=== PATIENT | male | born 1985 | race Hispanic/Latino ===

== ENCOUNTER 2017-04-02 20:29 | Emergency (ER) | payer BC | END 2017-04-02 21:12 | disposition home or self-care (01) | LOC: ERS 20:29 | DX: H60.92 Unspecified otitis externa, left ear (principal); Z79.899 Other long term (current) drug therapy | CPT/HCPCS: 99282 ==

== ENCOUNTER 2017-05-30 00:21 | Inpatient (IN) | payer BC ==
[2017-05-30 01:04] LABS: #Lymphocytes 0.8 thou/uL (1.20-3.40); #Monocytes 1.1 thou/uL (0.11-0.59); #Neutrophils 8.6 thou/uL (1.40-6.50); %Basophils 0.3 % (0.0-1.0); %Eosinophils 0.4 % (0.0-10.0); %Lymphocytes 7.3 % (21.0-51.0); Hemoglobin 15.6 g/dL (14.0-18.0); Mean Corpuscular HGB CONC 33.9 g/dL (32.0-36.0); Mean Corpuscular Hemoglobin 30.2 pg (27.0-31.0); Mean Corpuscular Volume 89.1 fl (80.0-94.0); Mean Platelet Volume 6.4 fL (7.4-10.4); Platelet Count 178 thou/uL (130-400); RBC Distribution Width 12.6 % (11.5-14.5); Red Blood Cell (RBC) Count 5.16 mill/uL (4.70-6.10); White Blood Cell (WBC) Count 10.5 thou/uL (4.8-10.8)
[2017-05-30 01:23] LABS: ALT (SGPT) 46 U/L (8-55); AST (SGOT) 28 U/L (5-34); Albumin 4.1 g/dL (3.5-5.0); Alkaline Phosphatase 90 U/L (40-150); Anion Gap 14 mmol/L (10-20); BUN (Urea Nitrogen) 9 mg/dL (8.9-20.6); Bilirubin, Total 1.5 mg/dL (0.2-1.2); Calc. Creatinine Clearance 0 mL/min (70-130); Calcium 9.6 mg/dL (7.8-10.44); Carbon Dioxide 21 mmol/L (22-29); Chloride 101 mmol/L (98-107); Estimated GFR-MDRD 82; Globulin 4.2 g/dL (2.4-3.5); Glucose 134 mg/dL (70-105); Potassium 4.4 mmol/L (3.5-5.1); Protein, Total 8.3 g/dL (6.0-8.3); Sodium 132 mmol/L (136-145)
[2017-05-30] MEDS ORDERED: Azithromycin 500 MG in Sodium Chloride 0.9% 250 ML 250 ML IVPB SCH (03:15)
[2017-05-30] MEDS ORDERED: Piperacillin/Tazobactam 4.5 GM in Sodium Chloride 0.9% 100 ML IVPB SCH (03:15)
[2017-05-30] MEDS ORDERED: Ondansetron ODT 4 MG TAB SL PRN (05:42)
[2017-05-30] MEDS ORDERED: Acetaminophen 325 MG TAB PO PRN (05:42)
[2017-05-30] MEDS ORDERED: Ondansetron HCl/PF 4 MG/2 ML Vial IVP PRN (05:42)
[2017-05-30] MEDS: Sodium Chloride 0.9% 1,000 ML IV SCH ×2 (06:00→14:01)
[2017-05-30 06:48] VITALS: BMI 40.6
--- NOTE | 2017-05-30 09:00 | RAD ---
UPRIGHT PORTABLE CHEST 1 VIEW: Date: 05/30/17 HISTORY: 31-year-old male with dyspnea, shortness of breath, cough, and chest pain. FINDINGS: There is very poor inspiration. There are some alveolar parenchymal changes in the right lower lobe a nd possibly the right middle lobe with some right costophrenic angle blunting. There are less promine nt parenchymal changes in the left lower lung zone, mostly in the left lower lobe, with some left cos tophrenic angle blunting. IMPRESSION: Findings are certainly worrisome for bilateral pneumonia, worse in the right base, with some small pl eural effusions. Poor inspiration. The upper lung zones demonstrate mild vascular congestion. POS: [facility]
--- NOTE | 2017-05-30 09:23 | CT ---
PRELIMINARY REPORT/[facility]/EMERGENCY AFTER HOURS PROCEDURE: EXAM: CT Angiography Chest With Intravenous Contrast CLINICAL HISTORY: 31 years old, male; Pain and signs and symptoms; Dyspnea and shortness of breath; Chest pain; Patient HX: 31m presents for shortness of breath. Patient states he woke up with cough, shortness o f breath and chest pain. Patient reports HX of dvt, for which he was placed on eliquis and is complia nt. Patient reports fever and chills. Increased SOB today. Patient hypoxic on arrival with sats 89% o n ra. TECHNIQUE: Axial computed tomographic angiography images of the chest with intravenous contrast using pulmonary embolism protocol. CONTRAST: 63 mL of ISO 370 administered intravenously. COMPARISON: No relevant prior studies available. FINDINGS: Pulmonary vessels: Nonopacification of the right middle lobe pulmonary artery and veins. Otherwise there is no evidence of pulmonary embolism. Aorta: No acute findings. No thoracic aortic aneurysm. Lungs: Right middle lobe consolidation with air bronchograms likely representing pneumonia. Right low er lobe atelectasis/consolidation. Left lower lobe and lingular atelectatic/consolidative opacities. Pleural space: Trace pleural fluid. No pneumothorax. Heart: No acute findings. No cardiomegaly. No significant pericardial effusion. Bones/joints: No acute fracture. No dislocation. Soft tissues: No acute findings. Lymph nodes: No lymphadenopathy. IMPRESSION: No evidence of pulmonary embolism. Right middle lobe consolidation and nonopacification may represent necrotizing pneumonia. Right lower lobe atelectasis/consolidation and left lower lobe and lingular a telectatic/consolidative opacities are also likely related to pneumonia. THIS REPORT CONTAINS FINDINGS THAT MAY BE CRITICAL TO PATIENT CARE. The findings were verbally commun icated via telephone conference with BRANDEN JOHNS at 2:38 AM BIOCHEMICAL ENGINEER on 05/30/2017. The findings were a cknowledged and understood. Thank you for allowing us to participate in the care of your patient. Dictated and Authenticated by: Chadwick Pena MD 05/30/2017 2:58 AM Central Time ([place] & [place]) FINAL REPORT EMERGENCY AFTER HOURS CT ANGIOGRAM CHEST INCLUDING 3D RENDERING: DATE: 05/30/17 TIME: 0150 hours IMPRESSION: No significant CT evidence for acute pulmonary embolism. Right middle lobe and right lower lobe pneum onia with some right pleural effusion. Minimal left lower lobe and lingular parenchymal changes which could also represent some minimal pneumonia. Treatment and short-term follow-up suggested. Report in agreement with preliminary report given on-call by Zoraida. POS: [facility]
[2017-05-30] MEDS ORDERED: Albuterol Sulfate 1.25 MG/3 ML NEB NEB PRN ×2 (10:36→10:39)
[2017-05-30] MEDS ORDERED: HYDROcodone/Acetaminophen 5/325 mg Tablet PO PRN (10:39)
--- NOTE | 2017-05-30 11:35 | CON ---
DATE OF CONSULTATION: 05/30/2017 This is a 31-year-old morbidly obese gentleman who is 120 kilograms. He presented wit h right-sided chest pain and shortness of breath without any fever or chills to my surprise. 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 He was given some more Levaquin yesterday. His previous history is consistent with deep venous throm bosis several years. He is still apparently taking Eliquis. His primary care physician is Dr. Aman pedrzoa. He was hypoxic on arrival. He was placed on noninvasive ventilation. He denies any substance abuse. He denies any tobacco abuse. He drinks occasionally. PAST MEDICAL HISTORY: Pertinent mainly for his deep venous thrombosis. PAST SURGICAL HISTORY: Apparently none. REVIEW OF SYSTEMS: Otherwise 10 point negative. PHYSICAL EXAMINATION: VITAL SIGNS: Blood pressure is 120/79, sats 90%, respirations 30, temperature 98. CHEST: Chest revealed bilateral rhonchi and crackles. CARDIAC: Normal S1 and S2. No gallops. LABORATORY: His lab shows white count 10,000, H&H 15 and 46, platelet count is normal, 82 segs. Sod ium 132. Electrolytes are normal. X-ray shows an elevated right hemidiaphragm, right pleural effusi on. CAT scan shows the above findings along with a very small right-sided pleural effusion. IMPRESSION: 1. Community acquired pneumonia, bilateral. 2. Small right pleural effusion. PLAN: He has pneumonia, therefore steroids have been issued. Continue antibiotics, doxycycline. Continue Eliquis. I will follow. This is 70 minutes of my time, 50% of that time I spent taking care of the patient.
--- NOTE | 2017-05-30 11:38 | HP ---
PRIMARY CARE PHYSICIAN: Dr. Will Boone. PRIMARY CARDIOLOGY: Dr. Al. HISTORY OF PRESENT ILLNESS: This is a 31-year-old gentleman with a history of hypercoagulable state with resulting chronic DVT, who presented to the emergency department last night with complaints of s udden onset of pain in chest and shortness of breath. He denied any fevers or chills at that time. Denies fever. He has become more short of breath with chills. He states that he has pain whenever h e moves or cough at this time. In the emergency department, he was found to have bilateral infiltrat es consistent with bilateral pneumonia. He was quite hypoxic on admission. He had some improvement of his symptoms, as well as his shortness of breath with BiPAP. He has been able to wean off the BiP AP but continues to be short of breath and hypoxic when he moves in bed and continues to have chest p ain. He did have a CT angiogram of his chest in the ER, which was negative for pulmonary embolism, b ut did have bilateral infiltrates in his lungs. He started on antibiotics last night in the ED and i s now being admitted for further evaluation and treatment of his bilateral pneumonia. PAST MEDICAL HISTORY: Chronic left-sided DVT since 2015, he has been on Eliquis, he has been followe d by Dr. Al and was seen by Dr. Moreno, who diagnosed him with a hypercoagulable state and t old that he is going to be chronically on anticoagulation. PAST SURGICAL HISTORY: Tonsillectomy. SOCIAL HISTORY: No smoking. Occasional social alcohol use. He is with 4 children. 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 No ill contacts. FAMILY HISTORY: Mother with diabetes, heart disease with recent [place]. Father has unknown medical hist ory. MEDICATIONS: Only Eliquis 2.5 mg b.i.d. REVIEW OF SYSTEMS: As per the history of present illness. GENERAL: He denies any recent fevers, chills or recent illness. HEENT: He admits to headache. No visual or hearing changes. CARDIAC: Positive for chest pain, no palpitations, no history of heart disease. PULMONARY: Positive chest pain. Positive shortness of breath. No hemoptysis. No cough. GASTROINTESTINAL: No nausea, vomiting, abdominal pain, melena or hematochezia. GENITOURINARY: Denies dysuria or hematuria. NEUROLOGIC: Positive weakness. He has difficulty moving around due to his pain in his chest wheneve r he moves. NEUROLOGIC: No history of seizures or syncope. PHYSICAL EXAMINATION: VITAL SIGNS: Temperature 98.6, pulse of 85-95, respirations 22-30, blood pressure 129/79, pulse ox i s 98% to 99% on room air, but drops down to 83% to 85% whenever he moves. GENERAL: He is awake and a lert. He is uncomfortable in bed with no acute distress. Mild conversational dyspnea. NECK: Supple. No JVD, adenopathy or bruits. HEART: Regular rate and rhythm. LUNGS: With scattered rhonchi throughout, occasional wheezes anteriorly. He is unable to sit up for very long to listen posteriorly. ABDOMEN: Obese, soft, nontender, nondistended. No hepatosplenomegaly. EXTREMITIES: No clubbing, cyanosis or edema. No calf tenderness. LABORATORY DATA: White blood cell count 10.5 thousand, hemoglobin and hematocrit 15.6 and 46, platel ets 178. D-dimer was mildly elevated at 0.74. Sodium 132, potassium 4.2, chloride 101, CO2 21, BUN and creatinine 9 and 1.05. Serum glucose 134. Urinalysis positive for protein. Chest x-ray was rev iewed which revealed right middle and lower lobe infiltrates with pleural effusions and left upper lo be infiltrate as well. CT angiogram was negative. ASSESSMENT AND PLAN: This is a 31-year-old gentleman with a hypercoagulable state, now with acute on set of bilateral pneumonia. We will continue antibiotics with IV Levaquin. We will start neb treatm ents and oxygen therapy as well. Follow up chest x-rays. Follow up labs including CBC. I will chec k his sputum culture as well and consult Pulmonary for evaluation due to the sudden onset of his symp toms and otherwise healthy individual. We will rule out any kind of immunocompromised state. I will check HIV, hepatitis, and PPD placement as well.
[2017-05-30 12:21] LABS: HBSAg Index 0.15 S/CO (0-0.99); Hep B Surf Ag Non-Reactive S/CO (NonReactive)
[2017-05-30 12:22] LABS: Hep C IgG Ab Non-Reactive (NonReactive); Hep C Index 0.12 S/CO (0-0.79)
[2017-05-30 12:24] LABS: HIV (1/2) Antibody/Antigen Non-Reactive (NonReactive); HIV 1/2 INDEX 0.14 S/CO (<1.00)
[2017-05-30] MEDS ORDERED: ISOVUE-370 76%-LOCM 1 ML ONE (12:24)
[2017-05-30 12:35] LABS: Hep A IgM AB Non-Reactive (NonReactive); Hep A IgM S/CO 0.14 S/CO (0-0.79)
[2017-05-30 13:48] LABS: HBCM Index 1.02 S/CO (0-0.79)
[2017-05-30 13:57] LABS: Hepatitis B Core IGM Abs Equivocal (NonReactive)
[2017-05-30] MEDS: Apixaban 5 MG TAB PO SCH (21:31)
[2017-05-30] MEDS: Doxycycline 100 MG CAP PO SCH (21:32)
[2017-05-31 05:04] LABS: #Lymphocytes 0.5 thou/uL (1.20-3.40); #Monocytes 0.5 thou/uL (0.11-0.59); #Neutrophils 11.2 thou/uL (1.40-6.50); %Eosinophils 0.1 % (0.0-10.0); %Lymphocytes 3.8 % (21.0-51.0); %Monocytes 4.1 % (0.0-10.0); Hemoglobin 14.4 g/dL (14.0-18.0); Mean Corpuscular HGB CONC 34.2 g/dL (32.0-36.0); Mean Corpuscular Hemoglobin 30.2 pg (27.0-31.0); Mean Corpuscular Volume 88.3 fl (80.0-94.0); Mean Platelet Volume 6.4 fL (7.4-10.4); Platelet Count 177 thou/uL (130-400); RBC Distribution Width 12.3 % (11.5-14.5); Red Blood Cell (RBC) Count 4.77 mill/uL (4.70-6.10); White Blood Cell (WBC) Count 12.2 thou/uL (4.8-10.8)
[2017-05-31 05:20] LABS: ALT (SGPT) 86 U/L (8-55); AST (SGOT) 63 U/L (5-34); Albumin 3.7 g/dL (3.5-5.0); Alkaline Phosphatase 89 U/L (40-150); Anion Gap 11 mmol/L (10-20); BUN (Urea Nitrogen) 8 mg/dL (8.9-20.6); Bilirubin, Total 1.1 mg/dL (0.2-1.2); Calc. Creatinine Clearance 201 mL/min (70-130); Calcium 9.6 mg/dL (7.8-10.44); Carbon Dioxide 27 mmol/L (22-29); Chloride 101 mmol/L (98-107); Estimated GFR-MDRD Greater than 90; Globulin 4.2 g/dL (2.4-3.5); Glucose 162 mg/dL (70-105); Potassium 4.2 mmol/L (3.5-5.1); Protein, Total 7.9 g/dL (6.0-8.3); Sodium 135 mmol/L (136-145)
[2017-05-31] MEDS: Apixaban 5 MG TAB PO SCH ×2 (09:34→19:46)
[2017-05-31] MEDS: Doxycycline 100 MG CAP PO SCH ×2 (09:34→19:47)
--- NOTE | 2017-05-31 10:33 | RAD ---
CHEST 1 VIEW: Date: 05/31/17 HISTORY: 31-year-old male with follow-up bilateral pneumonia. FINDINGS: Poor inspiration with some fairly extensive alveolar opacity changes in the right mid and lower lung zone, and blunting of the right costophrenic angle, with some less marked pleural and parenchymal opa city changes in the left base. IMPRESSION: Stable bilateral pleural and parenchymal opacity changes, worse in the right base. Continued follow-u p for complete clearing or stability. POS: [facility]
--- NOTE | 2017-05-31 11:20 | PRG ---
DATE OF SERVICE: 05/31/2017 PRIMARY CARE PHYSICIAN: Dr. Will Boone. SUBJECTIVE: The patient is feeling significantly better. He denies chest pain. He still has some c ough with production. No fevers or chills. No nausea and vomiting. He is moving around in the room better. He did get short of breath when taking a shower. OBJECTIVE: VITAL SIGNS: Temperature 98.2, T-max of 99.2, pulse of 95-120, respirations 16-20, blood pressure 13 9/83, pulse ox is 91% to 97% on 3 liters. GENERAL: He is awake and alert, in no acute distress, sitting up and comfortable in bed. NECK: Supple. HEART: Tachycardic. LUNGS: With decreased breath sounds bilaterally, worse on the right side. ABDOMEN: Obese, soft. EXTREMITIES: With no edema. LABORATORY DATA: White blood cell count 12.2 thousand, hemoglobin and hematocrit 14.4 and 42.2, plat elets 177, left shift with 92% neutrophils. Sodium 135, potassium 4.2, chloride 101, CO2 27, up from 21, BUN and creatinine 8 and 0.93 with a GFR of greater than 90. Serum glucose of 162, calcium 9.6, AST and ALT are elevated at 63 and 86, albumin of 3.7. HIV was nonreactive, hepatitis A antibody wa s negative, hepatitis B antigen was negative. Hepatitis B core antibody was equivocal, hepatitis C a ntibody was nonreactive. Chest x-ray is pending, but appears about the same as yesterday. HOSPITAL COURSE: This is a 31-year-old gentleman with a history of chronic DVT, now with multilobar pneumonia, improved on Levaquin and doxycycline. Appreciate Dr. Moreno's input. We will continue to f avtar. 1. Deep venous thrombosis. We will continue Eliquis. 2. We will transfer to medical floor since he is not as hypoxic and less pain. We will continue to monitor. 3. Positive hepatitis B antibody. I will continue to monitor and recheck in 1-2 months. 4. Elevated liver function tests. I will stop acetaminophen and continue to monitor.
--- NOTE | 2017-05-31 12:50 | PRG ---
DATE OF SERVICE: 05/31/2017 SUBJECTIVE: This morning, he is better, less pain and less shortness of breath. OBJECTIVE: VITAL SIGNS: Sats are 90% on 2 liters, pulse 102, temperature is 98 and blood pressure is 145/89. CHEST: Decreased breath sounds in right lung. Left lung, unremarkable. CARDIAC: Normal S1 and S2. No gallops. ABDOMEN: Soft. No masses. LABORATORY DATA: White count 12,000, hemoglobin and hematocrit 14 and 42, platelet count is normal. Electrolytes are normal. IMAGING DATA: X-ray shows a right-sided infiltrate. There may be a small pleural effusion. IMPRESSION: Right-sided pneumonia, pleural effusion. PLAN: He can be transferred out of the ICU. Continue steroids, doxycycline and Levaquin. We will spencer nova.
[2017-06-01 05:00] LABS: #Lymphocytes 0.6 thou/uL (1.20-3.40); #Monocytes 0.7 thou/uL (0.11-0.59); #Neutrophils 12.7 thou/uL (1.40-6.50); %Basophils 0.1 % (0.0-1.0); %Eosinophils 0.2 % (0.0-10.0); %Lymphocytes 4.1 % (21.0-51.0); %Monocytes 5.3 % (0.0-10.0); %Neutrophils 90.3 % (42.0-75.0); Hemoglobin 14.1 g/dL (14.0-18.0); Mean Corpuscular Hemoglobin 28.7 pg (27.0-31.0); Mean Corpuscular Volume 89.5 fl (80.0-94.0); Mean Platelet Volume 6.5 fL (7.4-10.4); Platelet Count 210 thou/uL (130-400); RBC Distribution Width 12.4 % (11.5-14.5); Red Blood Cell (RBC) Count 4.91 mill/uL (4.70-6.10); White Blood Cell (WBC) Count 14.1 thou/uL (4.8-10.8)
[2017-06-01 05:24] LABS: ALT (SGPT) 269 U/L (8-55); AST (SGOT) 193 U/L (5-34); Albumin 3.4 g/dL (3.5-5.0); Alkaline Phosphatase 105 U/L (40-150); Anion Gap 14 mmol/L (10-20); BUN (Urea Nitrogen) 14 mg/dL (8.9-20.6); Bilirubin, Total 0.8 mg/dL (0.2-1.2); Calc. Creatinine Clearance 191 mL/min (70-130); Calcium 9.6 mg/dL (7.8-10.44); Carbon Dioxide 23 mmol/L (22-29); Chloride 101 mmol/L (98-107); Estimated GFR-MDRD Greater than 90; Globulin 4.6 g/dL (2.4-3.5); Glucose 161 mg/dL (70-105); Potassium 4.9 mmol/L (3.5-5.1); Sodium 133 mmol/L (136-145)
--- NOTE | 2017-06-01 07:42 | RAD ---
CHEST 1 VIEW: HISTORY: Pneumonia. Followup. COMPARISON: 05/31/17. FINDINGS: The cardiac silhouette is magnified and upper limits of normal. Infiltrate at the right base has imp roved slightly since the previous exam. Patchy left basilar infiltrate is stable. Pulmonary vascula ture is slightly more engorged. Mediastinum is midline. No evidence of pneumothorax. IMPRESSION: 1. Slight interval improvement in aeration of the right lung base. 2. Progression of pulmonary vascular congestion. POS: [facility]
[2017-06-01] MEDS: Doxycycline 100 MG CAP PO SCH ×2 (08:34→20:24)
[2017-06-01] MEDS: Apixaban 5 MG TAB PO SCH ×2 (08:34→20:24)
--- NOTE | 2017-06-01 08:37 | PRG ---
DATE OF SERVICE: 06/01/2017 SUBJECTIVE: The patient is feeling better today. He states his shortness of breath has improved. H e is still on 2 liters of oxygen. OBJECTIVE: VITAL SIGNS: Temperature 97.9, pulse 85, respiration 20, pulse ox 93 on 2 liter, blood pressure 130/ 88. HEART: Regular rate and rhythm. LUNGS: Clear. ABDOMEN: Soft. LABORATORY: White count from 12-14.1, H&H 14 and 44. Sodium 133, potassium 4.9, blood sugar 162 and 161. Liver function tests are elevated at 63 to 193, AST, ALT is 86 and 269. Hepatitis B core IgM antibody is equivocal. ASSESSMENT: 1. Bilateral pneumonia on Levaquin and doxycycline. 2. Chronic deep venous thrombosis on Eliquis. 3. Questionable hepatitis B IgM positivity. 4. Elevated liver function tests. PLAN: 1. Continue IV antibiotics. 2. Repeat CBC and comprehensive in the a.m. 3. Abdominal ultrasound. 4. Will need repeat hepatitis B studies.
--- NOTE | 2017-06-01 10:26 | ULT ---
RIGHT UPPER QUADRANT ABDOMINAL ULTRASOUND: HISTORY: Elevated LFTs. TECHNIQUE: Multiplanar, rubin scale, and color Doppler images were obtained in a right upper quadrant abdominal u ltrasound. FINDINGS: The liver is increased in echogenicity without focal lesions or intrahepatic ductal dilatation. The gallbladder is normal without stones, sludge, gallbladder wall thickening, or pericholecystic fluid. The common bile duct is normal measuring 5 mm. The visualized portions of the pancreas are unremarkable. The right kidney is normal in echogenicity without hydronephrosis or calculus and measures 10.7 cm in length. IMPRESSION: Fatty liver. POS: [facility]
--- NOTE | 2017-06-01 16:49 | PRG ---
DATE OF SERVICE: 06/01/2017 This morning he is much better. X-ray looks improved. Infiltrates look better. PHYSICAL EXAMINATION: VITAL SIGNS: Sats 93% on 2 liters, temperature 97, blood pressure 130/80. CHEST: Bilateral crackles, without any wheezing. CARDIAC: Normal S1-S2. No gallops. ABDOMEN: Soft. No masses. LABORATORY DATA: White count 14,000. Electrolytes are normal. Elevated liver function. IMPRESSION: 1. Bilateral bronchopneumonia. 2. Abnormal liver function. PLAN: All cultures are so far negative. I will switch him over to oral medications tomorrow. He can be discharged home hopefully if he is stable in the next 24-48 hours. I will follow. ZABRINA
[2017-06-02 05:04] LABS: #Eosinphils 0.1 thou/uL (0.0-0.7); #Lymphocytes 1.7 thou/uL (1.20-3.40); #Monocytes 0.8 thou/uL (0.11-0.59); %Basophils 0.3 % (0.0-1.0); %Eosinophils 0.8 % (0.0-10.0); %Lymphocytes 19.8 % (21.0-51.0); %Monocytes 9.3 % (0.0-10.0); %Neutrophils 69.8 % (42.0-75.0); Hemoglobin 14.4 g/dL (14.0-18.0); Mean Corpuscular HGB CONC 34.7 g/dL (32.0-36.0); Mean Corpuscular Hemoglobin 31.2 pg (27.0-31.0); Mean Platelet Volume 6.3 fL (7.4-10.4); Platelet Count 169 thou/uL (130-400); RBC Distribution Width 12.4 % (11.5-14.5); Red Blood Cell (RBC) Count 4.62 mill/uL (4.70-6.10); White Blood Cell (WBC) Count 8.5 thou/uL (4.8-10.8)
[2017-06-02 05:26] LABS: ALT (SGPT) 301 U/L (8-55); AST (SGOT) 162 U/L (5-34); Albumin 3.4 g/dL (3.5-5.0); Alkaline Phosphatase 99 U/L (40-150); Anion Gap 12 mmol/L (10-20); BUN (Urea Nitrogen) 21 mg/dL (8.9-20.6); Bilirubin, Total 0.5 mg/dL (0.2-1.2); Calc. Creatinine Clearance 160 mL/min (70-130); Calcium 8.9 mg/dL (7.8-10.44); Carbon Dioxide 29 mmol/L (22-29); Chloride 100 mmol/L (98-107); Estimated GFR-MDRD 76; Globulin 3.7 g/dL (2.4-3.5); Glucose 109 mg/dL (70-105); Potassium 4.3 mmol/L (3.5-5.1); Protein, Total 7.1 g/dL (6.0-8.3); Sodium 137 mmol/L (136-145)
[2017-06-02] MEDS ORDERED: predniSONE 20 MG TAB PO SCH (08:00)
[2017-06-02] MEDS: Apixaban 5 MG TAB PO SCH (08:02)
[2017-06-02] MEDS: Doxycycline 100 MG CAP PO SCH (08:03)
--- NOTE | 2017-06-02 08:35 | RAD ---
CHEST ONE VIEW: History: Pneumonia. Follow up. Comparison: 06-01-17 FINDINGS: Cardiac silhouette is magnified and enlarged. Pulmonary vasculature is upper limits of normal. Patchy bilateral infiltrates, right greater than left, are similar in appearance to the prior exam. No evid ence of pneumothorax. IMPRESSION: Stable radiographic appearance of bibasilar infiltrates. POS: [facility]
[2017-06-02 11:34] VITALS: BP 125/84; TEMP 98.4
--- NOTE | 2017-06-02 12:43 | PRG ---
DATE OF SERVICE: 06/02/2017 OBJECTIVE: VITAL SIGNS: Blood pressure 127/85, saturations are 97 on 2 liters, respiration 16, temperature 98. CHEST: Decreased breath sounds in the right lung. Left lung is unremarkable. CARDIAC: Normal S1, S2. No gallops. ABDOMEN: Soft. No masses. LABORATORY DATA: White count 8000, no left shift. Electrolytes are normal. His liver function is b maribel. AST and ALT are 161 and 301. IMAGING: He had ultrasound of the abdomen done yesterday. It basically shows gallbladder was unrema rkable. IMPRESSION: 1. Right-sided pneumonia, small pleural effusion, better. 2. Abnormal liver function tests. PLAN: From a pulmonary standpoint of view, he can be discharged home on present antibiotic, tapering dose of prednisone and antibiotics for another 5 days. Follow up in the office in 2 weeks for chest x-ray.
--- NOTE | 2017-06-02 15:53 | DIS ---
DATE OF ADMISSION: 05/30/2017 DATE OF DISCHARGE: 06/02/2017 DISCHARGE DIAGNOSES: 1. Bilateral bronchopneumonia. 2. Chronic deep venous thrombosis, on Eliquis. 3. Questionable hepatitis B IgM positivity. 4. Elevated liver function tests. DISCHARGE MEDICATIONS: Eliquis 2.5 p.o. b.i.d., doxycycline 100 p.o. b.i.d. x7 days and Levaquin 500 p.o. q. day x7 days. BRIEF HISTORY: This is a 31-year-old [place] male with a chronic DVT who presented with the s udden onset of pain in the chest and shortness of breath. He denied any fever or chills. He was exp eriencing shortness of breath with chills. He was evaluated in the emergency room and was found to h ave bilateral infiltrates in his lungs. He was also noted to be hypoxic. He was therefore admitted for further treatment. A CT angiogram of the chest was negative for PE, but he did have bilateral in filtrates noted. HOSPITAL COURSE: The patient was placed on IV antibiotics. He did well over several days. He was t hen changed over to p.o. doxycycline 100 p.o. b.i.d. and Levaquin 500 p.o. q. day. Chest x-rays were followed, which showed improvement. Hepatitis studies were performed due to elevated liver function test. An IgM and hepatitis C antibody was noted, but equivocal. The plan is to repeat hepatitis B studies in 2 weeks. Liver function test did rise with an AST of 63, 193 and 162 and ALT of 86, 269 a nd 301. His alkaline phosphatase went from 89 to 105 to 99. Creatinine was noted to be 1.12, BUN at 21, glucose of 109 with a white count, which went from 12 to 14 to 8.5. His platelets were stable a t 169, hemoglobin and hematocrit of 14 and 41. Therefore, the patient is being treated with bilatera l bronchopneumonia. He will be discharged on the above medications. He will follow up in the office in 2 weeks. All of hepatitis B studies will be repeated at that time. The patient will return to [facility] in 1 week.
--- NOTE | 2017-06-02 16:22 | PQF ---
CLINICAL DOCUMENTATION IMPROVEMENT CLARIFICATION FORM: ICD-10 Updated PLEASE DO AN ADDENDUM TO THE PROGRESS NOTE WITH ANY DOCUMENTATION UPDATES OR ADDITIONS AND CARRY THROUGH TO DC SUMMARY. THANK YOU. DATE: 06/02/17 ATTN: Dr. Boone Please exercise your independent, professional judgment in responding to the clarification form. Clinical indicators are provided on the bottom of this form for your review Please check appropriate box(s): [ ] Acute Respiratory Failure: [ ] with Hypoxia [ ] with Hypercapnia [ ] Acute On Chronic Respiratory Failure: [ ] with Hypoxia [ ] with Hypercapnia [ ] Acute Respiratory Failure due to: (etiology) [ ] Chronic Respiratory Failure only [ ] with Hypoxia [ ] with Hypercapnia [ ] Other diagnosis [ ] Unable to determine In addition, please specify: Present on Admission (POA): [ ] Yes [ ] No [ ] Unable to determine For continuity of documentation, please document condition throughout progress notes and discharge summary. Thank You. CLINICAL INDICATORS - SIGNS / SYMPTOMS / LABS ED RECORD: PT HYPOXIC ON ARRIVAL W/ SATS 89% ON RA RESP 26 RESP 30, O2 SAT 95 ON BIPAP H&P: HE WAS QUITE HYPOXIC ON ADMISSION. HE HAS BEEN ABLE TO WEAN OFF THE BIPAP BUT CONTINUES TO BE SOB & HYPOXIC WHEN HE MOVES IN BED AND CONTINUES TO HAVE CP. RISKS: H&P: ACUTE ONSET OF BILATERAL PNEUMONIA. TREATMENT: ORDER 05/30: RESP: VISION BIPAP CONTINUOUS. DC 05/30. ORDER 05/31: OXYGEN (RESP: O2 TO KEEP SATS 94% CONTINUOUS) Thank you, Melissa (This form is maintained as a part of the permanent medical record) 2015 [employer]. All Rights Reserved Melissa Villaseñor RN, BSN [email or web address] Office: [phone] [facility]
== END 2017-06-02 11:35 | disposition home or self-care (01) | DRG 194 ==
LOC: ERS 00:21 → IMCU/EMU 05:28 → T4-A 05-31 12:50
PROVIDERS: ADMIT Family Medicine; ATTEND Family Medicine
PROC: 5A09357 Assistance with Respiratory Ventilation, Less than 24 Consecutive Hours, Continuous Positive Airway Pressure (ICD-10-PCS; principal; 2017-05-30)
DX: J18.0 Bronchopneumonia, unspecified organism (principal); J91.8 Pleural effusion in other conditions classified elsewhere; D68.59 Other primary thrombophilia; I82.502 Chronic embolism and thrombosis of unspecified deep veins of left lower extremity; R76.0 Raised antibody titer; Z79.01 Long term (current) use of anticoagulants; R09.02 Hypoxemia; R79.89 Other specified abnormal findings of blood chemistry
CPT/HCPCS: 36415; 71045; 71275; 76705; 80053; 80074; 83605; 85025; 85379; 87040; 87070; 87205; 87389; 93005; 94660; 94760; 96361; 96365; 96367; 99292; A4216; J0456; J0696; J1956; J2543; J2920; J7050; J7506

== ENCOUNTER 2017-06-02 23:52 | Emergency (ER) | payer BC ==
[2017-06-03] MEDS ORDERED: Ketorolac Tromethamine 30 MG/ML VIAL ONE (02:12)
--- NOTE | 2017-06-03 09:25 | RAD ---
SINGLE VIEW OF THE CHEST: Comparison: 05-30-17 History: Shortness of breath, pneumonia. FINDINGS: Single view of the chest shows a normal sized cardiomediastinal silhouette. There is an opacity in th e right lower lobe consistent with pneumonia. No pleural effusion is seen. IMPRESSION: Right lower lobe pneumonia. POS: [facility]
== END 2017-06-03 03:03 | disposition home or self-care (01) ==
LOC: ERS 23:52
DX: J18.9 Pneumonia, unspecified organism (principal); Z86.718 Personal history of other venous thrombosis and embolism
CPT/HCPCS: 71045; 93005; 96374; J1885

== ENCOUNTER 2018-04-23 09:59 | Emergency (ER) | payer BC ==
[2018-04-23 10:32] LABS: #Eosinphils 0.1 thou/uL (0.0-0.7); #Lymphocytes 0.9 thou/uL (1.20-3.40); #Monocytes 0.4 thou/uL (0.11-0.59); #Neutrophils 3.2 thou/uL (1.40-6.50); %Basophils 0.3 % (0.0-1.0); %Eosinophils 1.9 % (0.0-10.0); %Lymphocytes 18.9 % (21.0-51.0); %Monocytes 9.6 % (0.0-10.0); %Neutrophils 69.4 % (42.0-75.0); Hemoglobin 15.2 g/dL (14.0-18.0); Mean Corpuscular HGB CONC 34.2 g/dL (32.0-36.0); Mean Corpuscular Hemoglobin 29.7 pg (27.0-31.0); Mean Platelet Volume 7.3 fL (7.4-10.4); Platelet Count 129 thou/uL (130-400); RBC Distribution Width 12.5 % (11.5-14.5); Red Blood Cell (RBC) Count 5.11 mill/uL (4.70-6.10); White Blood Cell (WBC) Count 4.6 thou/uL (4.8-10.8)
[2018-04-23 10:39] LABS: INR-International Normal Ratio 1.3; Prothrombin Time 16.6 SEC (12.0-14.7)
[2018-04-23 10:40] LABS: PTT 101.4 SEC (22.9-36.1)
[2018-04-23 10:57] LABS: ALT (SGPT) 46 U/L (8-55); AST (SGOT) 39 U/L (5-34); Albumin 3.9 g/dL (3.5-5.0); Alkaline Phosphatase 89 U/L (40-150); Anion Gap 12 mmol/L (10-20); BUN (Urea Nitrogen) 10 mg/dL (8.9-20.6); Bilirubin, Total 1.1 mg/dL (0.2-1.2); Calc. Creatinine Clearance 0 mL/min (70-130); Carbon Dioxide 21 mmol/L (22-29); Chloride 104 mmol/L (98-107); Estimated GFR-MDRD Greater than 90; Glucose 87 mg/dL (70-105); Lipase 47 U/L (8-78); Potassium 4.3 mmol/L (3.5-5.1); Protein, Total 7.9 g/dL (6.0-8.3); Sodium 133 mmol/L (136-145)
--- NOTE | 2018-04-23 11:17 | ULT ---
LEFT LOWER EXTREMITY VENOUS DOPPLER ULTRASOUND: DATE: 04/23/2018. COMPARISON: None. HISTORY: Pain, edema, and swelling, assess for DVT. TECHNIQUE: Multiplanar, rubin scale, sonographic imaging of the venous structures of the left lower extremity obt ained with color flow and spectral analysis. FINDINGS: The left common femoral vein is expanded and noncompressible. Similar findings are seen within the l eft profunda femoral vein and the proximal left popliteal vein, evidence of multifocal DVT. Profunda femoral vein and greater saphenous vein appear patent. Posterior tibial vein appears patent as well . IMPRESSION: Multifocal deep venous thrombosis of the left lower extremity. Performing cooling machine operator, Collette Almonte, reports that these findings were relayed to Dr. Goncalves at the time of the procedure. CODE CR
--- NOTE | 2018-04-23 11:36 | CT ---
CT ANGIO OF CHEST PERFORMED WITH IV CONTRAST ENHANCEMENT WITH 3D RECONSTRUCTIONS: Date: 04/23/18 HISTORY: Left leg pain and swelling, and development of shortness of breath. Patient reportedly has a unknown type of clotting disorder. FINDINGS: The lungs are clear of any infiltrative process. There is some parenchymal scarring within the right middle lobe. No pulmonary nodules or any acute infiltrative process. Thoracic aorta is normal in caliber. There is good pulmonary artery opacification. There is extensive bilateral lower lobe pulmonary embol i, also with lesser changes but bilateral upper lobe emboli also seen. The visualized liver parenchyma shows no focal findings. The pulmonary artery does not appear significantly dilated. IMPRESSION: Fairly extensive bilateral pulmonary emboli. Findings telephoned to Dr. Goncalves. CODE CR. POS: [facility]
[2018-04-23] MEDS ORDERED: Iopamidol 370 76% 100 ML VIAL ONE (13:30)
== END 2018-04-23 12:01 | disposition home or self-care (01) ==
LOC: ERS 09:59
DX: I82.412 Acute embolism and thrombosis of left femoral vein (principal); I82.432 Acute embolism and thrombosis of left popliteal vein; I26.99 Other pulmonary embolism without acute cor pulmonale; Z79.01 Long term (current) use of anticoagulants
CPT/HCPCS: 36415; 71275; 80053; 83690; 84484; 85025; 85610; 85730; 93005

== ENCOUNTER 2018-12-06 17:18 | Emergency (ER) | payer BC ==
[~2018-12-06 17:18] MED LIST: ISOVUE-370 76%-LOCM 1 ML ONE
[2018-12-06 17:52] LABS: #Eosinphils 0.1 thou/uL (0.0-0.7); #Lymphocytes 0.7 thou/uL (1.20-3.40); #Monocytes 0.4 thou/uL (0.11-0.59); #Neutrophils 2.5 thou/uL (1.40-6.50); %Eosinophils 1.8 % (0.0-10.0); %Lymphocytes 19.9 % (21.0-51.0); %Monocytes 11.8 % (0.0-10.0); %Neutrophils 66.5 % (42.0-75.0); Mean Corpuscular HGB CONC 32.9 g/dL (32.0-36.0); Mean Corpuscular Hemoglobin 29.3 pg (27.0-31.0); Mean Corpuscular Volume 89.1 fL (78.0-98.0); Mean Platelet Volume 7.1 fL (7.4-10.4); Platelet Count 110 thou/uL (130-400); Red Blood Cell (RBC) Count 4.76 mill/uL (4.70-6.10); White Blood Cell (WBC) Count 3.7 thou/uL (4.8-10.8)
--- NOTE | 2018-12-06 18:08 | RAD ---
PORTABLE CHEST: HISTORY: Chest pain. FINDINGS: The lungs are clear of infiltrate. No evidence of vascular congestion or edema. Heart size is withi n the normal range. Osseous structures are unremarkable. IMPRESSION: No acute process apparent. POS: [facility]
[2018-12-06 18:18] LABS: ALT (SGPT) 30 U/L (8-55); AST (SGOT) 32 U/L (5-34); Albumin 4.4 g/dL (3.5-5.0); Alkaline Phosphatase 73 U/L (40-150); Anion Gap 14 mmol/L (10-20); BUN (Urea Nitrogen) 17 mg/dL (8.9-20.6); Bilirubin, Total 0.8 mg/dL (0.2-1.2); CK (CPK) 80 U/L (30-200); Calc. Creatinine Clearance 0 mL/min (70-130); Calcium 9.9 mg/dL (7.8-10.44); Carbon Dioxide 25 mmol/L (22-29); Chloride 104 mmol/L (98-107); Estimated GFR-MDRD 62; Globulin 3.6 g/dL (2.4-3.5); Glucose 66 mg/dL (70-105); Sodium 139 mmol/L (136-145)
--- NOTE | 2018-12-06 18:59 | CT ---
CTA CHEST WITH CONTRAST: INDICATIONS: Chest pain. History of DVT and pulmonary emboli. TECHNIQUE: Axial tomograms obtained with multiplanar reconstruction and 3D post processing. FINDINGS: The pulmonary arteries show adequate enhancement. No evidence of pulmonary embolus identified. The lung silver are clear. No infiltrate or effusion. Mild atelectasis in the peripheral right midd le lobe. The mediastinum is unremarkable. The thoracic aorta is unremarkable. IMPRESSION: 1. No evidence of pulmonary embolus. 2. No acute lung process. POS: [facility]
== END 2018-12-06 19:23 | disposition home or self-care (01) ==
LOC: ERS 17:18
DX: R07.89 Other chest pain (principal); Z86.718 Personal history of other venous thrombosis and embolism; Z79.01 Long term (current) use of anticoagulants
CPT/HCPCS: 36415; 71045; 71275; 80053; 82550; 84484; 85025; 93005; Q9966

== ENCOUNTER 2019-01-03 13:19 | Emergency (ER) | payer BC ==
[2019-01-03] MEDS ORDERED: Metoclopramide HCl 10 MG/2 ML VIAL ONE (14:19)
[2019-01-03] MEDS ORDERED: diphenhydrAMINE 50 MG/ML VIAL ONE (14:19)
--- NOTE | 2019-01-03 14:48 | CT ---
CT BRAIN NONCONTRAST: DATE: 01/03/2019 HISTORY: 33-year-old male with headache FINDINGS: There is no evidence of acute intra-axial or extra-axial hemorrhage. There is no midline shift or any other mass effect. There is no extra-axial fluid collection. There is no evidence of obstructive hydrocephalus. Calvarium is intact. IMPRESSION: No acute intracranial findings.
== END 2019-01-03 15:41 | disposition home or self-care (01) ==
LOC: ERS 13:19
DX: F07.81 Postconcussional syndrome (principal); Z86.718 Personal history of other venous thrombosis and embolism
CPT/HCPCS: 70450; 96365; 96375; J1200; J2765

== ENCOUNTER 2019-10-03 12:35 | Observation (INO) | payer OTHER, SELFPAY ==
[~2019-10-03 12:35] MED LIST changes: -ISOVUE-370 76%-LOCM 1 ML ONE; +Iopamidol-370 76% 500 ML 1 ML ONE
[2019-10-03] MEDS ORDERED: Morphine 4 MG/ML VIAL ONE (13:06)
[2019-10-03 13:07] LABS: #Eosinphils 0.1 thou/uL (0.0-0.7); #Lymphocytes 0.6 thou/uL (1.20-3.40); #Monocytes 0.2 thou/uL (0.11-0.59); #Neutrophils 2.4 thou/uL (1.40-6.50); %Basophils 0.4 % (0.0-1.0); %Eosinophils 1.7 % (0.0-10.0); %Monocytes 7.1 % (0.0-10.0); %Neutrophils 72.8 % (42.0-75.0); Hemoglobin 14.3 g/dL (14.0-18.0); Mean Corpuscular HGB CONC 33.2 g/dL (32.0-36.0); Mean Corpuscular Hemoglobin 29.8 pg (27.0-31.0); Mean Corpuscular Volume 89.7 fL (78.0-98.0); Mean Platelet Volume 7.7 fL (7.4-10.4); Platelet Count 112 thou/uL (130-400); RBC Distribution Width 13.9 % (11.5-14.5); White Blood Cell (WBC) Count 3.3 thou/uL (4.8-10.8)
[2019-10-03 13:26] LABS: ALT (SGPT) 25 U/L (8-55); AST (SGOT) 22 U/L (5-34); Albumin 4.3 g/dL (3.5-5.0); Alkaline Phosphatase 85 U/L (40-110); Anion Gap 16 mmol/L (10-20); BUN (Urea Nitrogen) 13 mg/dL (8.9-20.6); Bilirubin, Total 0.7 mg/dL (0.2-1.2); Calc. Creatinine Clearance 0 mL/min (70-130); Calcium 9.1 mg/dL (7.8-10.44); Carbon Dioxide 21 mmol/L (22-29); Chloride 105 mmol/L (98-107); Estimated GFR-MDRD 68; Globulin 3.8 g/dL (2.4-3.5); Glucose 135 mg/dL (70-105); Lipase 497 U/L (8-78); Potassium 3.5 mmol/L (3.5-5.1); Protein, Total 8.1 g/dL (6.0-8.3); Sodium 138 mmol/L (136-145)
--- NOTE | 2019-10-03 14:29 | CT ---
CT ANGIOGRAM THORAX WITH CONTRAST (CTA pulmonary angiogram) CT THORAX WITH CONTRAST CT ABDOMEN WITH CONTRAST CT PELVIS WITH CONTRAST: DATE: 10/03/2019 HISTORY: 33-year-old male with history of previous pulmonary thromboembolism presents with bilateral flank jed n COMPARISON: Prior CTA chest of 12/06/2018 TECHNIQUE: IV injection of iodinated contrast. Scan acquisition timing attempted to coincide with iodinated contrast bolus reaching maximal density in pulmonary arteries. 3-D MIP reconstructions. Oral contrast media: Not administered Single phase scans of thorax, abdomen, and pelvis. FINDINGS: On 04/23/2018, there were acute bilateral low lung pulmonary artery thromboemboli. On the 12/06/2018, they had become smaller and chronic, with linear residual thin filling defects in t hose arteries. That appearance has not changed since 12/06/2018. There are still thin linear filling defects in the b ilateral lower lobe and right middle lobe pulmonary arteries, and their branches. The current study is suboptimal because of hypoinflated lungs, resulting in diffuse groundglass densi ties throughout the bilateral lower lobes. This is not typical for COVID-19. This groundglass appearance could be because of hypoinflated lungs. No consolidation, pleural effusion, or pneumothora x. Upper lobes are relatively clear. Again noted is the pulmonary scar in the right middle lobe. No thoracic aortic aneurysm or dissection . Trachea and major bronchi are patent and clear. No mediastinal or hilar lymphadenopathy. Normal abdominal aorta, kidneys, adrenals, pancreas, liver, spleen, appendix, and urinary bladder. No colonic diverticulitis, ascites, pneumoperitoneum, or small bowel dilation. No abnormality of lumbar spine identified. No osseous abnormalities of pelvis. IMPRESSION: 1) residual chronic clot in the bilateral lower lobe pulmonary arteries, right middle lobe pulmonary artery, and their branches. 2) no definite acute pulmonary thromboembolism identified. 3) hypoinflated lungs resulting in diffusely increased attenuation of bilateral lower lobes. 4) no other pathology identified in the abdomen and pelvis.
[2019-10-03] MEDS ORDERED: Acetaminophen 325 MG TAB PO PRN (16:41)
[2019-10-03] MEDS ORDERED: Senokot S 8.6-50 MG TAB PO PRN (16:41)
[2019-10-03 17:21] LABS: Alcohol Less than 10 mg/dL (Less than 10); CRP (Inflammatory) 0.55 mg/dL (= or < 0.5)
[2019-10-03 17:58] LABS: Bilirubin Negative (Negative); Blood, Urine Negative (Negative); Clarity Clear (Clear); Glucose, Urine (Dipstick) Normal (Negative); Leukocyte Negative Leu/uL (Negative); Nitrite Negative (Negative); Protein, Urine (Dipstick) 20 mg/dL (Neg-Trace); Urobilinogen Normal mg/dL (Less than 2)
[2019-10-03] MEDS ORDERED: Morphine 2 MG/ML SYRINGE SLOW IVP PRN (18:30)
[2019-10-03] MEDS: Sodium Chloride 0.9% 1,000 ML IV SCH (20:25)
[2019-10-03 22:38] VITALS: BMI 38.5
[2019-10-04] MEDS: Sodium Chloride 0.9% 1,000 ML IV SCH ×3 (01:19→07:35)
--- NOTE | 2019-10-04 01:22 | HP ---
CHIEF COMPLAINT: Abdominal pain. HISTORY OF PRESENT ILLNESS: This is a 34-year-old male with past medical history of DVT and hypercoagulable disorder, on anticoagulation, who presented to the hospital with complaints of epigastric and back pain for the past 2 days. He stated that the pain started on Thursday, and he was drinking alcohol on Thursday night. In the ER, a CT scan of the abdomen and pelvis was done, which did not show any acute pathology. However, his laboratory work revealed elevated lactate level. REVIEW OF SYSTEMS: Negative except as noted in HPI. PAST SURGICAL HISTORY: Tonsillectomy. PAST MEDICAL HISTORY: As noted above. SOCIAL HISTORY: The patient drinks alcohol socially and denies any illicit drug use. PHYSICAL EXAMINATION: GENERAL: The patient is alert and oriented x3. HEENT: Head is normocephalic and atraumatic. Extraocular muscles are intact. Pupils are equal, reactive to light. NECK: Supple. CHEST: Clear to auscultation bilaterally. CARDIOVASCULAR: Reveals normal S1 and S2. No murmurs, rubs, or gallops. ABDOMEN: Soft with minimal tenderness in the epigastric area. NEUROLOGICAL: Normal cranial nerves 2 through 12 and normal motor and sensory examination. IMPRESSION: Mild acute pancreatitis, likely related to alcohol use. PLAN: We will observe the patient overnight and hydrate him. We will use Tylenol for mild pain and morphine for severe pain. Likely to be discharged home tomorrow if his condition improves. Job ID: [id number]
[2019-10-04 07:20] LABS: #Eosinphils 0.1 thou/uL (0.0-0.7); #Lymphocytes 0.8 thou/uL (1.20-3.40); #Monocytes 0.3 thou/uL (0.11-0.59); #Neutrophils 2.1 thou/uL (1.40-6.50); %Basophils 0.4 % (0.0-1.0); %Lymphocytes 22.7 % (21.0-51.0); %Monocytes 10.4 % (0.0-10.0); %Neutrophils 64.5 % (42.0-75.0); Hemoglobin 13.8 g/dL (14.0-18.0); Mean Corpuscular HGB CONC 33.4 g/dL (32.0-36.0); Mean Corpuscular Hemoglobin 30.2 pg (27.0-31.0); Mean Corpuscular Volume 90.3 fL (78.0-98.0); Mean Platelet Volume 7.2 fL (7.4-10.4); Platelet Count 100 thou/uL (130-400); RBC Distribution Width 14.1 % (11.5-14.5); Red Blood Cell (RBC) Count 4.56 mill/uL (4.70-6.10); White Blood Cell (WBC) Count 3.3 thou/uL (4.8-10.8)
[2019-10-04 07:37] LABS: ALT (SGPT) 20 U/L (8-55); AST (SGOT) 19 U/L (5-34); Albumin 3.7 g/dL (3.5-5.0); Alkaline Phosphatase 75 U/L (40-110); Anion Gap 11 mmol/L (10-20); BUN (Urea Nitrogen) 8 mg/dL (8.9-20.6); Bilirubin, Total 0.6 mg/dL (0.2-1.2); Calc. Creatinine Clearance 189 mL/min (70-130); Calcium 8.2 mg/dL (7.8-10.44); Carbon Dioxide 24 mmol/L (22-29); Chloride 106 mmol/L (98-107); Estimated GFR-MDRD Greater than 90; Globulin 3.4 g/dL (2.4-3.5); Glucose 88 mg/dL (70-105); Potassium 4.2 mmol/L (3.5-5.1); Protein, Total 7.1 g/dL (6.0-8.3); Sodium 137 mmol/L (136-145)
[2019-10-04 07:57] VITALS: BP 124/82; TEMP 98.1
[2019-10-04 11:27] LABS: SARS-CoV-2 MS2 Positive; SARS-CoV-2 N Gene Negative; SARS-CoV-2 S Gene Negative; SARS-CoV-2 orf1ab Negative
--- NOTE | 2019-10-04 13:50 | DIS ---
DATE OF ADMISSION: 10/03/2019 DATE OF DISCHARGE: 10/04/2019 DISCHARGE DIAGNOSIS: Acute pancreatitis likely related to alcohol use. DISCHARGE MEDICATIONS: No new discharge medications. HISTORY OF PRESENT ILLNESS AND HOSPITAL COURSE: The patient is a 34-year-old male with past medical history of DVT and hypercoagulable disorder on anticoagulation, who presented to the hospital with complaints of epigastric pain and back pain for 2 days, started Thursday morning. The patient was drinking alcohol on Thursday night. In the ER, his lipase level was found to be elevated at 400+. He was admitted to the hospital and managed with IV hydration and his symptoms completely resolved within 24 hours. He was tested for the coronavirus in the ER, even though he did not have any symptoms. At this time, his results are still pending. Job ID: [id number]
== END 2019-10-04 09:34 | disposition home or self-care (01) ==
LOC: ERS 12:35 → T4-B 15:47
PROVIDERS: ADMIT Internal Medicine; ATTEND Internal Medicine
DX: K85.90 Acute pancreatitis without necrosis or infection, unspecified (principal); D68.59 Other primary thrombophilia; Z20.828 Contact with and (suspected) exposure to other viral communicable diseases; Z86.711 Personal history of pulmonary embolism; Z86.718 Personal history of other venous thrombosis and embolism; Z79.01 Long term (current) use of anticoagulants
CPT/HCPCS: 36415; 71275; 74177; 80053; 80307; 81003; 83690; 85025; 85652; 86140; 87635; 96361; 96374; G0378; J2270; Q9967; U0003

== ENCOUNTER 2020-01-21 11:15 | Inpatient (IN) | payer OTHER, SELFPAY ==
--- NOTE | 2020-01-21 13:27 | ULT ---
VENOUS DOPPLER ULTRASOUND OF THE LEFT LOWER EXTREMITY: HISTORY: Left lower extremity pain and edema. TECHNIQUE: Juan scale ultrasound with color flow and spectral Doppler imaging of the deep venous system of the l eft lower extremity was performed. FINDINGS: There is absence of compression with minimal flow due to intraluminal thrombus extending from the lef t common femoral vein into the femoral and popliteal veins and also involves the saphenofemoral junct ion. IMPRESSION: Deep vein thrombosis in the left lower extremity. Discussed over the telephone with Marilyn Condon nurse practitioner in the emergency room, at 12:59 p.m. CODE CR POS: OFF
[2020-01-21] MEDS ORDERED: Enoxaparin Sodium 30 MG/0.3 ML SYRINGE ONE (13:52)
[2020-01-21] MEDS ORDERED: Enoxaparin Sodium 100 MG/ML SYRINGE ONE (13:52)
[2020-01-21 14:19] LABS: Hemoglobin 15.4 g/dL (14.0-18.0); Mean Corpuscular HGB CONC 34.1 g/dL (32.0-36.0); Mean Corpuscular Hemoglobin 30.1 pg (27.0-31.0); Mean Corpuscular Volume 88.3 fL (78.0-98.0); Platelet Count 101 thou/uL (130-400); RBC Distribution Width 12.6 % (11.5-14.5); Red Blood Cell (RBC) Count 5.13 mill/uL (4.70-6.10)
[2020-01-21 14:24] LABS: INR-International Normal Ratio 2.1; Prothrombin Time 23.3 sec (12.0-14.7)
[2020-01-21 14:28] LABS: PTT 152.4 sec (22.9-36.1)
[2020-01-21 14:36] LABS: ALT (SGPT) 27 U/L (8-55); AST (SGOT) 35 U/L (5-34); Albumin 4.1 g/dL (3.5-5.0); Alkaline Phosphatase 91 U/L (40-110); Anion Gap 13 mmol/L (10-20); BUN (Urea Nitrogen) 12 mg/dL (8.9-20.6); Bilirubin, Total 0.9 mg/dL (0.2-1.2); CK (CPK) 54 U/L (30-200); Calc. Creatinine Clearance 0 mL/min (70-130); Calcium 8.8 mg/dL (7.8-10.44); Carbon Dioxide 25 mmol/L (22-29); Chloride 101 mmol/L (98-107); Estimated GFR-MDRD 83; Globulin 4.2 g/dL (2.4-3.5); Glucose 74 mg/dL (70-105); Potassium 4.3 mmol/L (3.5-5.1); Protein, Total 8.3 g/dL (6.0-8.3); Sodium 135 mmol/L (136-145)
[2020-01-21 14:37] LABS: #Lymphocytes 0.5 thou/uL (1.20-3.40); #Monocytes 0.3 thou/uL (0.11-0.59); #Neutrophils 2.1 thou/uL (1.40-6.50); %Basophils 0.2 % (0.0-1.0); %Eosinophils 1.3 % (0.0-10.0); %Lymphocytes 16.7 % (21.0-51.0); %Monocytes 11.2 % (0.0-10.0); %Neutrophils 70.7 % (42.0-75.0); Platelet Morphology Comment Appears Decreased; RBC Morphology Normal
[2020-01-21 14:48] LABS: MDiff Complete? YES
[2020-01-21 15:52] VITALS: BMI 34.4
[2020-01-21] MEDS ORDERED: Acetaminophen 325 MG TAB PO PRN (17:34)
[2020-01-21] MEDS: Enoxaparin Sodium 100 MG/ML SYRINGE SC SCH (20:46)
--- NOTE | 2020-01-21 23:41 | HP ---
CHIEF COMPLAINT: Left lower extremity swelling. HISTORY OF PRESENT ILLNESS: The patient is a 34-year-old male with a past medical history of DVT and PE, who presents to the hospital with complaints of worsening left lower extremity. The patient states that normally his lower extremity will swell, which he props up at night time and then in the morning usually the swelling goes away. However, since for the past couple days he has noticed that this swelling has not improved and he is having also pain on his left lower extremity, which he normally does not. He came into the ER. He underwent a vascular ultrasound, which indicated a DVT to the left lower extremity. The patient has a history of multiple DVTs and PEs. The patient states he does not recall, however, he states that he has been on Eliquis and Xarelto in the past. He states that he has been compliant with his Xarelto on a daily basis. He did have a CTA on April of 2018, which indicated extensive bilateral pulmonary embolism. He states that he has had an echocardiogram; however I do not see any in our system. PAST MEDICAL HISTORY: He has a history of DVT. PAST SURGICAL HISTORY: He has had a tonsillectomy. SOCIAL HISTORY: He denies any smoking. Occasional alcohol use. He is currently with 4 kids, one on the [address]. He works in the [employer]. He did follow with Hematology as an outpatient and per records notes that he was in a hypercoagulable state. However, currently I do not have all the records. FAMILY HISTORY: His mother has diabetes, heart disease. Father has seizure. MEDICATIONS: He takes Xarelto 20 mg daily. REVIEW OF SYSTEMS: All negative except for the ones mentioned above in the HPI. PHYSICAL EXAMINATION: VITAL SIGNS: Are as of the following; temperature of 98.2, 67, 18, 99% on room air, 141/74. GENERAL: He is awake, alert, and oriented x3. Does not appear in distress CV: S1, S2 present. No murmurs, rubs, or gallops. LUNGS: Clear to auscultation. No rhonchi or wheezes noted. ABDOMEN: Soft and nontender. Bowel sounds are present x2. EXTREMITIES: Left extremity is greater than right. Pedal pulses are present bilaterally. NEUROVASCULAR: No focal deficits noted. SKIN: No cuts, lesions or bruises noted. LABORATORY DATA: WBCs of 3.0, hemoglobin 15.4, hematocrit of 45.3, his platelets are 101. Chemistry: Sodium 135, potassium of 4.3, BUN of 12, and creatinine of 1.02. He did have as I mentioned lower extremity Dopplers, which indicated a deep vein thrombosis of the left lower extremity. ASSESSMENT AND PLAN: The patient is a very pleasant 34-year-old male who presents to the hospital with complaints of left lower extremity pain. [id number] deep venous thrombosis. The patient has had a history of deep venous thrombosis and pulmonary embolism. He normally has deep venous thrombosis on the left leg, this is a recurrent deep venous thrombosis. He states that he is compliant with his medication. The patient however does not take his medication with food. He takes it sometimes with food and sometimes without. Also, the patient has been under lot of stress recently given his is and also he has not had a job, lot of financial burden. The patient states that he has lost about 20 pounds. He has been having early satiety. I recommended to follow up as an outpatient, especially with his primary care. If this continues that he might require further workup including an EGD. We will get Hematology to come see this patient. In our computer system, I do not see any workup for his hypercoagulable state. However, we will see what Hematology has to say and will go from there. Obesity. The patient again lost 20 pounds without any diet and exercise. He states that he has been having some early satiety. I am not sure, if this is secondary to him feeling depressed given his financial issues and other personal issues at home versus an underlying problem. We will continue to monitor. Job ID: [id number]
[2020-01-22 04:51] LABS: #Lymphocytes 0.7 thou/uL (1.20-3.40); #Monocytes 0.3 thou/uL (0.11-0.59); #Neutrophils 2.1 thou/uL (1.40-6.50); %Basophils 0.4 % (0.0-1.0); %Eosinophils 1.5 % (0.0-10.0); %Lymphocytes 22.5 % (21.0-51.0); %Monocytes 10.2 % (0.0-10.0); %Neutrophils 65.4 % (42.0-75.0); Hemoglobin 14.9 g/dL (14.0-18.0); Mean Corpuscular HGB CONC 34.1 g/dL (32.0-36.0); Mean Corpuscular Hemoglobin 30.5 pg (27.0-31.0); Mean Corpuscular Volume 89.5 fL (78.0-98.0); Mean Platelet Volume 7.7 fL (7.4-10.4); Platelet Count 97 thou/uL (130-400); RBC Distribution Width 12.7 % (11.5-14.5); Red Blood Cell (RBC) Count 4.89 mill/uL (4.70-6.10); White Blood Cell (WBC) Count 3.2 thou/uL (4.8-10.8)
[2020-01-22 05:08] LABS: Anion Gap 11 mmol/L (10-20); BUN (Urea Nitrogen) 11 mg/dL (8.9-20.6); Calc. Creatinine Clearance 153 mL/min (70-130); Calcium 8.4 mg/dL (7.8-10.44); Carbon Dioxide 27 mmol/L (22-29); Chloride 101 mmol/L (98-107); Estimated GFR-MDRD 84; Glucose 106 mg/dL (70-105); Potassium 3.6 mmol/L (3.5-5.1); Sodium 135 mmol/L (136-145)
[2020-01-22 08:21] LABS: INR-International Normal Ratio 1.1; Prothrombin Time 14.6 sec (12.0-14.7)
[2020-01-22 08:30] LABS: PTT 149.1 sec (22.9-36.1)
[2020-01-22] MEDS: Enoxaparin Sodium 100 MG/ML SYRINGE SC SCH ×2 (09:26→21:20)
[2020-01-22 11:45] LABS: SARS-CoV-2 MS2 Positive; SARS-CoV-2 N Gene Negative; SARS-CoV-2 S Gene Negative; SARS-CoV-2 by NAA Not Detected (NotDetected); SARS-CoV-2 orf1ab Negative
[2020-01-22] MEDS ORDERED: Iopamidol-370 76% 500 ML 1 ML ONE (11:57)
[2020-01-22 14:17] LABS: Platelet Count 100 thou/uL (130-400)
[2020-01-22 14:23] LABS: Fibrinogen 442 mg/dL (253-463); Prothrombin Time 13.5 sec (12.0-14.7)
[2020-01-22 14:26] LABS: PTT 125.3 sec (22.9-36.1)
[2020-01-22 14:27] LABS: PTT 125.3 sec (22.9-36.1); Prothrombin Time 13.5 sec (12.0-14.7)
[2020-01-22 14:40] LABS: FSP-Qualitative ABNORMAL (Normal); FSP-Semiquantitative >=5 & <20 mcg/mL (Less than 5)
[2020-01-22 14:42] LABS: D-Dimer Test Less than 0.27 *mcg/mL (0.27-0.43)
--- NOTE | 2020-01-22 15:09 | PDOC.HOSPP ---
- Subjective Encounter Date: 01/22/20 Encounter Time: 12:30 Subjective: pt up in bed no complains - Objective Vital Signs & Weight: Vital Signs (12 hours) Temp Pulse Resp BP Pulse Ox 01/22/20 11:43 97.8 F 97 01/22/20 10:30 87 16 128/91 H 01/22/20 08:33 98.5 F 78 16 150/95 H 98 01/22/20 08:00 98 01/22/20 04:24 98.3 F 70 18 108/55 L 96 Weight Weight 232 lb 14.4 oz I&O: 01/21/20 01/22/20 01/23/20 06:59 06:59 06:59 Intake Total 960 Balance 960 Result Diagrams: 01/22/20 14:04 01/22/20 04:33 Hospitalist ROS - Review of Systems Cardiovascular: denies: chest pain, palpitations, orthopnea, paroxysmal noc. dyspnea, edema, light headedness, other Gastrointestinal: denies: nausea, vomiting, abdominal pain, diarrhea, constipation, melena, hematochezia, other Genitourinary: denies: dysuria, frequency, incontinence, hematuria, retention, other - Medication Medications: Active Medications Generic Name Dose Route Start Last Admin Trade Name Freq PRN Reason Stop Dose Admin Enoxaparin Sodium 100 mg 01/21/20 21:00 01/22/20 09:26 Lovenox SC 100 mg 0900,2100 DHARA Administration - Exam Heart: negative: RRR, no murmur, no gallops, no rubs, normal peripheral pulses, irregular, diminshed peripheral pulses, murmur present, II/IV, III/IV Respiratory: negative: CTAB, no wheezes, no rales, no ronchi, normal chest expansion, no tachypnea, normal percussion, rales, rhonchi, tachypneic, wheezes Gastrointestinal: no hepatomegaly Extremities: 1+ LE edema Extremities - other findings: left leg swelling Hosp A/P (1) Obesity Code(s): E66.9 - OBESITY, UNSPECIFIED Status: Acute (2) Deep vein blood clot of left lower extremity Code(s): I82.402 - ACUTE EMBOLISM AND THOMBOS UNSP DEEP VEINS OF L LOW EXTREM Status: Acute - Plan pt does not know why he was switched from xarelto to eliquis back to xarelto. Per pt he has been compliant with his meds except missing 2-3 doses of xarelto. He does not take it with food which decreases xarelto's bioavailability. He is a heavy drinker. spoke with heme/onc, will get hypercoag work up, lipase, vit b12 and folate. Pt has had recurrent dvt in his left leg. His PTT is elevated not sure why? liver disease would increase PT. Xarelto increases PT/INR. He is also has pancytopenia possible from underlying liver disease. will get ct abd/pel. Will try to call his pcp on Thursday for more info. Upon reviewing his chart it appears that he was seen by heme/onc in the past and was noted to have a hypercoagulable state.
[2020-01-22] MEDS ORDERED: Warfarin Sodium 10 MG TAB PO SCH (17:00)
[2020-01-22 18:19] LABS: Cardiolipin IgA Ab 9.3 APL-U/mL (<14 Negative); EliA APS New Method **** NEW METHOD ****
--- NOTE | 2020-01-22 19:13 | CT ---
CT ABDOMEN AND PELVIS PERFORMED WITH CONTRAST ENHANCEMENT: History: Pancytopenia. History of blood clots in legs. Evaluation for clots in abdomen. IVC filter be ing placed tomorrow morning. Comparison: 10-03-2019 FINDINGS: The lungs are clear of any infiltrative process. There is diffuse fatty change of the liver which delonte sures approximately 18 cm in length. Spleen is mildly enlarged. It measures approximately 15 cm, it i s a somewhat thin elongated spleen but still appears slightly enlarged. The pancreas region is unrema rkable. Gallbladder is also normal in appearance. Right and left adrenal glands and right and left kidneys are normal. There are small periaortic and a ortocaval nodes, none of which appear pathologically enlarged. There is no significant mesenteric colt nopathy. The IVC below the level of the renal veins is not opacified. It is not possible to accuratel y evaluate for any thrombus within the IVC. CT OF PELVIS PERFORMED WITH CONTRAST ENHANCEMENT: Appendix is normal. No mass is identified. There is some mild bilateral external iliac chain lymphade nopathy. Some of the more prominent nodes are just directly anterior to the obturator internus muscle s. IMPRESSION: 1. Mild splenomegaly and fatty change of the liver. 2. Some mild aortocaval and periaortic as well as pelvic lymphadenopathy. Most of these nodes are not significantly enlarged. Some of the larger nodes are in the external iliac chain and measure 14 mm i n short axis dimension. 3. There is not significant opacification of the IVC to evaluate for thrombus. POS: OFF
--- NOTE | 2020-01-22 23:14 | CON ---
DATE OF CONSULTATION: REASON FOR CONSULTATION: Hypercoagulopathy. HISTORY OF PRESENT ILLNESS: Mr. Judd is a pleasant 34-year-old gentleman with past medical history of multiple DVT and pulmonary emboli. He presented to the hospital with worsening left lower extremity pain. His first DVT was in 2003, was unprovoked. He has had multiple PE's since that time. His last one was in 2018. He did undergo some sort of workup with Dr. George Gomez, but records are not available in our computer system. He was initially on Xarelto, then changed to Eliquis, and then back to Xarelto. He states he has been taking 20 mg daily every day. He may have missed occasional doses, but nothing significant. He has not been taking it with food. He has no family history of clotting. He has had no issues with bleeding or bruising since being on medication. The patient states he has lost 20 pounds over the last several months, which he attributes to stress after he lost job and insurance due to COVID-19. He was admitted in September for mild pancreatitis. He had pancytopenia at that time, but he has had longstanding leukopenia and thrombocytopenia since 2018. PAST MEDICAL HISTORY: DVT, PE. PAST SURGICAL HISTORY: Tonsillectomy. ALLERGIES: NO KNOWN DRUG ALLERGIES. HOME MEDICATIONS: Xarelto 20 mg daily. FAMILY HISTORY: No history of blood disorder. SOCIAL HISTORY: , 4 children. He worked in the [employer] field. No tobacco. Occasional alcohol use. REVIEW OF SYSTEMS: A 10-point review of systems is negative. PHYSICAL EXAMINATION: VITAL SIGNS: Temperature 97.8, pulse is 87, respiratory rate 16, BP is 128/91. He is 97% on room air. GENERAL: A well-developed, well-nourished male, in no acute distress. HEENT: Normocephalic, atraumatic. Pupils are equal and reactive to light. NECK: Supple. CV: Regular rate and rhythm. LUNGS: Clear. ABDOMEN: Soft and nontender. Bowel sounds are positive. EXTREMITIES: He has left lower extremity edema. SKIN: No rash. HEMATOLOGIC: No petechiae or purpura. NEUROLOGICAL: Nonfocal. PERTINENT LABORATORY DATA AND X-RAYS: Current WBCs are 3.2, hemoglobin 14.9, hematocrit 43.8, platelet count is 97,000. He has 65% neutrophils, 22% lymphocytes, 10% monocytes. PT is 14.6, INR is 1.1, and PTT is 49.1. Sodium 135, potassium 3.6, chloride 101, CO2 is 27, BUN is 11, creatinine 1.01, calcium 8.4, bilirubin 0.9 , AST is 35, ALT is 27, alkaline phosphatase is 91, creatine kinase is 54. Serum total protein is 8.3, albumin 4.1, globulin 4.2. COVID-19 PCR negative. He was tested for HIV and hepatitis earlier this year and was negative. ASSESSMENT: 1. Hypercoagulable state with deep venous thrombosis while on Xarelto. 2. Elevated PTT. 3. Leukopenia and thrombocytopenia. DISCUSSION: The patient's Xarelto has been stopped. He has been switched to therapeutic Lovenox. The case has been discussed with Dr. Kenny. Given his history of pulmonary emboli, he would be an excellent candidate for an IVC filter. Dr. Mendez has been consulted. Query cause on his elevated PTT. He man have antiphospholipid syndrome but there are no records in the computer. We will run a panel to provide further clarity. Check B12, folic acid, retic count. He has a history of alcohol usage. Consider an ultrasound to look at his liver and spleen. We will follow along with his hospital course. Thank you for the consult. Job ID: [id number] [facility]ITAL[facility]aley
--- NOTE | 2020-01-23 01:00 | CON ---
DATE OF CONSULTATION: Mr. Judd is a 34-year-old gentleman who I have been asked to see due to recurrent DVT on anticoagulation. The patient has a history of DVT and pulmonary embolism, which was found in 2018. Apparently, he has had a hypercoagulable workup which is not available currently, but has been reported as positive. He has been managed on both Eliquis and Xarelto at different times. He has been muslim with taking his anticoagulant at home. He is currently on Xarelto. He presented with left leg pain. He had an ultrasound performed in the emergency department showing extensive left femoral popliteal DVT. Due to the recurrent DVT with a history of DVT, pulmonary embolism in the past and having been on Xarelto at the time of this DVT, I have been asked to see him to place an inferior vena cava filter. PAST MEDICAL HISTORY: DVT/PE. PAST SURGICAL HISTORY: Tonsillectomy. SOCIAL HISTORY: He works in the [employer]. He does not use tobacco. He does drink. He is and has 4 children. ALLERGIES: NONE. MEDICATIONS: Xarelto 20 mg daily. PHYSICAL EXAMINATION: GENERAL: This is a well-developed, well-nourished male, resting comfortably in the bed without shortness of breath currently. VITAL SIGNS: His temperature is 98.2, pulse is 77 and regular, blood pressure 147/87. HEENT: Sclerae nonicteric. Pupils equal and round bilaterally. NECK: Supple without bruit. CHEST: Clear bilaterally. HEART: Rhythm is regular without murmur. ABDOMEN: Soft and nontender. He has no masses. EXTREMITIES: There is 1+ edema on the left. No edema on the right. ASSESSMENT AND PLAN: Recurrent left deep vein thrombosis with a history of deep vein thrombosis/pulmonary embolism. He has been treated for a hypercoagulable state through the Hematology Department with Xarelto, which he has been taking. I have discussed permanent inferior vena cava filter placement with him and he is agreeable for us to proceed with placement. Job ID: [id number]
[2020-01-23 04:37] LABS: INR-International Normal Ratio 1.1; Prothrombin Time 13.7 sec (12.0-14.7)
[2020-01-23 04:41] LABS: PTT 123.3 sec (22.9-36.1)
[2020-01-23] MEDS ORDERED: Heparin 0 ML ONE (08:32)
[2020-01-23] MEDS ORDERED: Lidocaine 1% (PF) 30 ML VIAL ONE (08:41)
--- NOTE | 2020-01-23 09:34 | OP ---
DATE OF PROCEDURE: 01/23/2020 PREOPERATIVE DIAGNOSES: Recurrent deep venous thrombosis, on Xarelto with a history of deep venous thrombosis, pulmonary embolism in the past and hypercoagulable state. POSTOPERATIVE DIAGNOSES: Recurrent deep venous thrombosis, on Xarelto with a history of deep venous thrombosis, pulmonary embolism in the past and hypercoagulable state. PROCEDURES PERFORMED: 1. Ultrasound-guided right femoral vein access. 2. Inferior vena cavogram. 3. TrapEase permanent inferior vena cava filter placement. ANESTHESIA: 1% lidocaine for local. ESTIMATED BLOOD LOSS: Minimal. TOTAL CONTRAST: 12 mL. TOTAL FLUORO TIME: 0.6 minutes. DESCRIPTION OF PROCEDURE: After consent was obtained, the patient was brought to the crown and bridge dental lab technician, placed in supine position on crown and bridge dental lab technician table. Appropriate monitoring was placed. Groins were prepped and draped in usual sterile fashion. Using ultrasound guidance, the right common femoral artery was anesthetized and accessed. bSafeson guidewire was placed into the vena cava. The vena caval sheath was then placed. Hand-injected vena cavogram x3 was performed. Hourglassing was seen at the L1-L2 junction. Vena cava measured less than 2.5 cm in diameter. Filter tip was positioned at the L1-L2 junction. Filter was deployed and seated nicely. The patient tolerated the procedure well. Sheath was removed and manual pressure held for hemostasis. The patient was transferred back to his room in stable condition. Job ID: [id number]
[2020-01-23] MEDS ORDERED: Iopamidol 370 76% 50 ML VIAL FS ONE (11:21)
[2020-01-23] MEDS: Cyanocobalamin (Vitamin B-12) 1,000 MCG TAB PO SCH (12:52)
[2020-01-23] MEDS: Folic Acid 1 MG TAB PO SCH (12:52)
[2020-01-23] MEDS: Enoxaparin Sodium 100 MG/ML SYRINGE SC SCH (12:52)
[2020-01-24 05:36] LABS: Prothrombin Time 13.6 sec (12.0-14.7)
[2020-01-24] MEDS ORDERED: Enoxaparin Sodium 100 MG/ML SYRINGE SC SCH ×2 (06:00→21:00)
--- NOTE | 2020-01-24 08:56 | PDOC.HOSPP ---
- Subjective Encounter Date: 01/24/20 Encounter Time: 10:30 - Objective Vital Signs & Weight: Vital Signs (12 hours) Temp Pulse Resp BP BP Pulse Ox 01/24/20 07:20 98.0 F 73 17 119/72 93 L 01/24/20 03:46 98.1 F 70 18 117/60 95 01/24/20 00:00 98.0 F 75 18 125/76 96 Weight Weight 237 lb 14.06 oz I&O: 01/23/20 01/24/20 01/25/20 06:59 06:59 06:59 Intake Total 1440 960 Balance 1440 960 Result Diagrams: 01/22/20 14:04 01/22/20 04:33 Hospitalist ROS - Medication Medications: Active Medications Generic Name Dose Route Start Last Admin Trade Name Freq PRN Reason Stop Dose Admin Acetaminophen 325 mg 01/21/20 17:34 01/23/20 18:56 Tylenol PO 325 mg Q6H PRN Administration Headache/Fever or Pain Cyanocobalamin 1,000 mcg 01/23/20 09:00 01/23/20 12:52 Vitamin B-12 PO 1,000 mcg DAILY DHARA Administration Folic Acid 1 mg 01/23/20 09:00 01/23/20 12:52 Folvite PO 1 mg DAILY DHARA Administration Warfarin Sodium 10 mg 01/22/20 17:00 01/23/20 18:09 Coumadin PO 10 mg 1700 DHARA Administration Hosp A/P (1) Obesity Code(s): E66.9 - OBESITY, UNSPECIFIED Status: Acute (2) Deep vein blood clot of left lower extremity Code(s): I82.402 - ACUTE EMBOLISM AND THOMBOS UNSP DEEP VEINS OF L LOW EXTREM Status: Acute - Plan pt does not know why he was switched from xarelto to eliquis back to xarelto. Per pt he has been compliant with his meds except missing 2-3 doses of xarelto. He does not take it with food which decreases xarelto's bioavailability. He is a heavy drinker. spoke with heme/onc, will get hypercoag work up, lipase, vit b12 and folate. Pt has had recurrent dvt in his left leg. His PTT is elevated not sure why? liver disease would increase PT. Xarelto increases PT/INR. He is also has pancytopenia possible from underlying liver disease. will get ct abd/pel. Will try to call his pcp on Thursday for more info. Upon reviewing his chart it appears that he was seen by heme/onc in the past and was noted to have a hypercoagulable state. 01/22 pt most likely has a APL will make sure to add beta glycoprotein and lupus anticoagulant. will continue lovenox and Coumadin
[2020-01-24] MEDS: Folic Acid 1 MG TAB PO SCH (09:21)
[2020-01-24] MEDS: Cyanocobalamin (Vitamin B-12) 1,000 MCG TAB PO SCH (09:21)
[2020-01-24] MEDS ORDERED: Polyethylene Glycol 3350 17 GM Packet PO SCH (09:45)
[2020-01-24 11:56] VITALS: BP 156/93; TEMP 98.1
[2020-01-24 13:43] LABS: PT - Undiluted 13.5 SEC (12.0-14.7); PT 1:1 37C-90 min. Incubation 13.1 SEC; PTT - Undiluted 125.3 SEC (22.9-36.1); PTT 1:1 Mix 63.4 SEC
[2020-01-24 13:46] LABS: PTT 1:1 37C/90 MIN Incubation 70.3 SEC
[2020-01-24 13:52] LABS: Protein C Activity 84 % (78-152)
[2020-01-24 14:05] LABS: DRVVT Confirm 40.4; DRVVT Ratio 2.8 Ratio (1.2 or Less); HEX PHOS LA Tube 1 130.6 SEC; HEX PHOS LA Tube 2 73.2 SEC; Hexagonal Phospholipid Neut 57.4 SEC (0-8.0)
--- NOTE | 2020-01-24 14:14 | EKG ---
Test Reason : Blood Pressure : / mmHG Vent. Rate : 068 BPM Atrial Rate : 068 BPM P-R Int : 176 ms QRS Dur : 110 ms QT Int : 368 ms P-R-T Axes : 004 022 004 degrees QTc Int : 391 ms Normal sinus rhythm Normal ECG Confirmed by CY ALFARO, JUAQUIN ([id number]), non linear editor ILSA LINCOLN ([id number]) on 01/24/2020 2:13:53 PM Referred By: Confirmed By:JUAQUIN BENOIT MD
[2020-01-24 14:52] LABS: D-Dimer Test 0.28 *mcg/mL (0.27-0.43)
[2020-01-24 14:53] LABS: Thrombin Time 20.5 secs (14.3-20.0)
[2020-01-25] MEDS ORDERED: Polyethylene Glycol 3350 17 GM Packet PO SCH (09:00)
--- NOTE | 2020-01-25 10:41 | DIS ---
DATE OF ADMISSION: 01/21/2020 DATE OF DISCHARGE: 01/24/2020 DISCHARGE DIAGNOSES: 1. Deep venous thrombosis on the left lower extremity. 2. Antiphospholipid syndrome. 3. Alcohol abuse. 4. Low vitamin B12 level. HOSPITAL COURSE: The patient is a 34-year-old male, who initially presented to the hospital with complaints of left lower pain. He was on Xarelto. He has a history of DVTs and PEs and has been on Xarelto. He has also been on Eliquis in the past. He has also had a PE in the past. He did have an echocardiogram here, which indicated an EF 55% to 60% with some dilated RV and normal RV systolic function with mildly elevated right atrium size and mild mitral regurgitation. Upon reviewing his previous scans, he had bilateral pulmonary emboli. He was seen by Hematology and also by CV Surgery. He underwent an IVC filter placed. The patient also had a CT of abdomen and pelvis done, which indicated that he had some lymphadenopathy in his external iliac chain, which measured about 14 mm. Recommendation is to follow up to get a repeat scan to make sure that this has resolved. He also had some mild splenomegaly and fatty liver. We did check hypercoagulable workup. The patient's PTT was significantly elevated and we also checked his anticardiolipin, which was positive. The patient also had elevated lupus anticoagulant and we are waiting on the beta-2 glycoprotein to diagnose him officially with antiphospholipid syndrome. The patient was given Lovenox, which will be bridged to Coumadin. I did make him an appointment with his primary care doctor today at 1:30. I did speak with the primary care doctor also. The patient has been aware that he will have to take the shots until his INR is between 2 and 3. We did provide him with a coupon and he stated that he was able to afford those medications. The patient will have to follow up on a repeat CT of the abdomen and pelvis for his lymphadenopathy. He will also require another echocardiogram in another 6 months to make sure that his RV dilation is not worsening. 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 MEDICATIONS: His home medications will be; 1. Lovenox 100 mg twice a day. 2. Coumadin 10 mg. 3. Also vitamin B12 of 1000 mcg daily. 4. Folic acid. PHYSICAL EXAMINATION: VITAL SIGNS: On discharge; temperature 98.1, 85, 18, 96% room air, 119/72. GENERAL: He is awake, alert, and oriented x3. Does not appear in distress. CV: S1 and S2 present. No murmurs, rubs, or gallops. EXTREMITIES: His right lower extremity pulses are present. Groin dressing is intact. He has been advised to refrain from alcohol and the patient is aware of this. Job ID: [id number]
== END 2020-01-24 12:40 | disposition home or self-care (01) | DRG 253 ==
LOC: ERS 11:15 → 2SE 15:32
PROVIDERS: ADMIT Internal Medicine; ATTEND Internal Medicine
PROC: 06H03DZ Insertion of Intraluminal Device into Inferior Vena Cava, Percutaneous Approach (ICD-10-PCS; principal; 2020-01-23)
PROC: 4A023N7 Measurement of Cardiac Sampling and Pressure, Left Heart, Percutaneous Approach (ICD-10-PCS; 2020-01-23)
PROC: B2151ZZ Fluoroscopy of Left Heart using Low Osmolar Contrast (ICD-10-PCS; 2020-01-23)
PROC: B2111ZZ Fluoroscopy of Multiple Coronary Arteries using Low Osmolar Contrast (ICD-10-PCS; 2020-01-23)
DX: I82.412 Acute embolism and thrombosis of left femoral vein (principal); D68.9 Coagulation defect, unspecified; Z20.828 Contact with and (suspected) exposure to other viral communicable diseases; I82.432 Acute embolism and thrombosis of left popliteal vein; D72.819 Decreased white blood cell count, unspecified; D69.6 Thrombocytopenia, unspecified; E66.9 Obesity, unspecified; Z79.01 Long term (current) use of anticoagulants; Z86.718 Personal history of other venous thrombosis and embolism; Z68.35 Body mass index [BMI] 35.0-35.9, adult
CPT/HCPCS: 36415; 36600; 37191; 74177; 76942; 80048; 80053; 80500; 81240; 81241; 82550; 82607; 82746; 83090; 83615; 83690; 85025; 85049; 85240; 85250; 85300; 85303; 85305; 85307; 85362; 85379; 85384; 85598; 85610; 85611; 85613; 85670; 85730; 85732; 86146; 86147; 87635; 93005; 93306; 96372; C1880; J1644; J1650; J2001; Q9967; U0003

== ENCOUNTER 2021-08-19 15:41 | Inpatient (IN) | payer BC ==
[2021-08-19 16:43] LABS: #Eosinphils 0.1 thou/uL (0.0-0.7); #Lymphocytes 0.9 thou/uL (1.20-3.40); #Monocytes 0.7 thou/uL (0.11-0.59); #Neutrophils 3.5 thou/uL (1.40-6.50); %Basophils 0.4 % (0.0-1.0); %Eosinophils 2.2 % (0.0-10.0); %Lymphocytes 17.3 % (21.0-51.0); %Monocytes 12.7 % (0.0-10.0); %Neutrophils 67.3 % (42.0-75.0); Hemoglobin 12.9 g/dL (14.0-18.0); Mean Corpuscular HGB CONC 31.9 g/dL (32.0-36.0); Mean Corpuscular Hemoglobin 29.4 pg (27.0-31.0); Mean Corpuscular Volume 92.2 fL (78.0-98.0); Mean Platelet Volume 6.5 fL (7.4-10.4); Platelet Count 144 thou/uL (130-400); RBC Distribution Width 12.5 % (11.5-14.5); Red Blood Cell (RBC) Count 4.38 mill/uL (4.70-6.10); White Blood Cell (WBC) Count 5.2 thou/uL (4.8-10.8)
[2021-08-19 17:08] LABS: ALT (SGPT) 21 U/L (8-55); AST (SGOT) 24 U/L (5-34); Albumin 4.3 g/dL (3.5-5.0); Alkaline Phosphatase 73 U/L (40-110); Anion Gap 12 mmol/L (10-20); BUN (Urea Nitrogen) 11 mg/dL (8.9-20.6); Bilirubin, Total 0.9 mg/dL (0.2-1.2); Calc. Creatinine Clearance 0 mL/min (70-130); Calcium 9.1 mg/dL (7.8-10.44); Carbon Dioxide 26 mmol/L (22-29); Chloride 102 mmol/L (98-107); Globulin 3.7 g/dL (2.4-3.5); Glucose 88 mg/dL (70-105); Potassium 4.1 mmol/L (3.5-5.1); Sodium 136 mmol/L (136-145)
[2021-08-19] MEDS ORDERED: Cefepime 2 GM VIAL ONE (18:38)
[2021-08-19] MEDS ORDERED: Enoxaparin Sodium 100 MG/ML SYRINGE ONE (20:09)
[2021-08-19] MEDS ORDERED: Vancomycin 1 GM in Premix Bag 1 BAG IVPB SCH ×2 (20:15→22:00)
[2021-08-19] MEDS ORDERED: Communication Order-Pharmacy FS SCH (20:24)
[2021-08-19] MEDS ORDERED: Bisacodyl 5 MG TAB PO PRN (20:24)
[2021-08-19] MEDS ORDERED: Acetaminophen 325 MG TAB PO PRN (20:24)
[2021-08-19] MEDS ORDERED: HYDROcodone/Acetaminophen 5/325 mg Tablet PO PRN (20:24)
[2021-08-19] MEDS ORDERED: Senokot S 8.6-50 MG TAB PO PRN (20:24)
[2021-08-19] MEDS ORDERED: Ondansetron PF 4 MG/2 ML Vial IVP PRN (20:24)
[2021-08-19] MEDS ORDERED: Melatonin 3 MG TAB PO PRN (20:34)
[2021-08-19] MEDS: HYDROcodone/Acetaminophen 10/325 mg Tablet PO PRN (21:21)
[2021-08-19 21:26] VITALS: BMI 34.9
[2021-08-19] MEDS: Sodium Chloride 0.9% 1,000 ML IV SCH (22:08)
[2021-08-20] MEDS: HYDROcodone/Acetaminophen 10/325 mg Tablet PO PRN ×3 (05:19→16:26)
[2021-08-20] MEDS: Sodium Chloride 0.9% 1,000 ML IV SCH ×2 (05:20→16:27)
[2021-08-20 05:27] LABS: #Eosinphils 0.1 thou/uL (0.0-0.7); #Lymphocytes 0.9 thou/uL (1.20-3.40); #Monocytes 0.5 thou/uL (0.11-0.59); #Neutrophils 2.7 thou/uL (1.40-6.50); %Basophils 0.1 % (0.0-1.0); %Eosinophils 2.6 % (0.0-10.0); %Lymphocytes 20.8 % (21.0-51.0); %Monocytes 12.5 % (0.0-10.0); %Neutrophils 64.1 % (42.0-75.0); Hemoglobin 12.2 g/dL (14.0-18.0); Mean Corpuscular HGB CONC 32.1 g/dL (32.0-36.0); Mean Corpuscular Hemoglobin 29.6 pg (27.0-31.0); Mean Corpuscular Volume 92.3 fL (78.0-98.0); Mean Platelet Volume 6.5 fL (7.4-10.4); Platelet Count 131 thou/uL (130-400); RBC Distribution Width 12.5 % (11.5-14.5); Red Blood Cell (RBC) Count 4.11 mill/uL (4.70-6.10); White Blood Cell (WBC) Count 4.2 thou/uL (4.8-10.8)
[2021-08-20 05:54] LABS: ALT (SGPT) 19 U/L (8-55); AST (SGOT) 22 U/L (5-34); Albumin 3.6 g/dL (3.5-5.0); Alkaline Phosphatase 70 U/L (40-110); Anion Gap 11 mmol/L (10-20); BUN (Urea Nitrogen) 11 mg/dL (8.9-20.6); Bilirubin, Total 0.5 mg/dL (0.2-1.2); Calc. Creatinine Clearance 151 mL/min (70-130); Calcium 8.2 mg/dL (7.8-10.44); Carbon Dioxide 24 mmol/L (22-29); Chloride 106 mmol/L (98-107); Globulin 3.3 g/dL (2.4-3.5); Glucose 110 mg/dL (70-105); Potassium 3.8 mmol/L (3.5-5.1); Protein, Total 6.9 g/dL (6.0-8.3); Sodium 137 mmol/L (136-145)
[2021-08-20] MEDS ORDERED: Cefepime 1 GM in Sodium Chloride 0.9% 100 ML IVPB SCH (06:00)
[2021-08-20] MEDS: Enoxaparin Sodium 120 MG/0.8 ML SYRINGE SC SCH ×2 (07:54→19:52)
[2021-08-20] MEDS ORDERED: Vancomycin HCl 1.75 GM in Sodium Chloride 0.9% 500 ML IVPB SCH (10:00)
[2021-08-20 10:45] LABS: SARS-CoV-2 PCR by NAA Not Detected (NotDetected)
[2021-08-20] MEDS ORDERED: Cefepime 2 GM in Sodium Chloride 0.9% 100 ML IVPB SCH (18:00)
[2021-08-20] MEDS: Senokot S 8.6-50 MG TAB PO SCH (19:55)
[2021-08-20] MEDS ORDERED: Saccharomyces boulardii 250 MG CAP PO SCH (21:00)
[2021-08-21] MEDS: HYDROcodone/Acetaminophen 10/325 mg Tablet PO PRN ×3 (00:33→15:14)
[2021-08-21] MEDS: Enoxaparin Sodium 120 MG/0.8 ML SYRINGE SC SCH ×2 (08:36→18:21)
[2021-08-21] MEDS: Senokot S 8.6-50 MG TAB PO SCH (08:37)
[2021-08-21 17:09] VITALS: BP 124/75; TEMP 97.9
== END 2021-08-21 18:41 | disposition home or self-care (01) | DRG 300 ==
LOC: ERS 15:41 → T4-B 18:54
PROVIDERS: ADMIT Family Medicine; ATTEND Internal Medicine
DX: I82.432 Acute embolism and thrombosis of left popliteal vein (principal); L03.116 Cellulitis of left lower limb; L02.416 Cutaneous abscess of left lower limb; D68.51 Activated protein C resistance; I82.412 Acute embolism and thrombosis of left femoral vein; G89.4 Chronic pain syndrome; Z20.822 Contact with and (suspected) exposure to COVID-19; E66.9 Obesity, unspecified; Z28.311 Partially vaccinated for COVID-19; Z86.718 Personal history of other venous thrombosis and embolism; Z98.52 Vasectomy status; Z79.01 Long term (current) use of anticoagulants; Z68.34 Body mass index [BMI] 34.0-34.9, adult
CPT/HCPCS: 36415; 80053; 83605; 85025; 85652; 86140; 87040; 96365; 96372; 96375; J0692; J1650; J3370; J3490; J7030; J7050; U0003; U0005

== ENCOUNTER 2021-12-23 16:10 | Outpatient (CLI) | payer BC | END 2021-12-23 16:11 | disposition home or self-care (01) | LOC: ULT 16:10 → ERS 16:10 → ULT 16:11 → EDSTATUS 17:21 | PROVIDERS: ATTEND Nurse Practitioner Family | DX: S81.802A Unspecified open wound, left lower leg, initial encounter (principal) ==

== ENCOUNTER 2021-12-25 19:53 | Emergency (ER) | payer BC ==
[2021-12-25 20:32] LABS: #Eosinphils 0.1 thou/uL (0.0-0.7); #Lymphocytes 1.1 thou/uL (1.20-3.40); #Monocytes 0.6 thou/uL (0.11-0.59); #Neutrophils 3.9 thou/uL (1.40-6.50); %Eosinophils 1.9 % (0.0-10.0); %Lymphocytes 19.2 % (21.0-51.0); %Neutrophils 68.8 % (42.0-75.0); Hemoglobin 12.8 g/dL (14.0-18.0); Mean Corpuscular Hemoglobin 29.6 pg (27.0-31.0); Mean Corpuscular Volume 89.6 fL (78.0-98.0); Mean Platelet Volume 6.5 fL (7.4-10.4); Platelet Count 169 thou/uL (130-400); RBC Distribution Width 12.5 % (11.5-14.5); Red Blood Cell (RBC) Count 4.34 mill/uL (4.70-6.10); White Blood Cell (WBC) Count 5.7 thou/uL (4.8-10.8)
[2021-12-25 20:54] LABS: ALT (SGPT) 22 U/L (8-55); AST (SGOT) 24 U/L (5-34); Albumin 4.4 g/dL (3.5-5.0); Alkaline Phosphatase 80 U/L (40-110); Anion Gap 14 mmol/L (10-20); BUN (Urea Nitrogen) 21 mg/dL (8.9-20.6); Bilirubin, Total 0.7 mg/dL (0.2-1.2); Calc. Creatinine Clearance 0 mL/min (70-130); Calcium 9.6 mg/dL (7.8-10.44); Carbon Dioxide 24 mmol/L (22-29); Chloride 99 mmol/L (98-107); Estimated GFR 70; Globulin 4.6 g/dL (2.4-3.5); Glucose 97 mg/dL (70-105); Potassium 3.7 mmol/L (3.5-5.1); Sodium 133 mmol/L (136-145)
[2021-12-25] MEDS ORDERED: Enoxaparin Sodium 100 MG/ML SYRINGE ONE (21:12)
== END 2021-12-25 21:27 | disposition home or self-care (01) ==
LOC: ERS 19:53
DX: I82.502 Chronic embolism and thrombosis of unspecified deep veins of left lower extremity (principal); Z86.711 Personal history of pulmonary embolism
CPT/HCPCS: 71045; 71275; 80053; 83880; 84484; 85025; 93005; 96372; J1650; Q9967

== ENCOUNTER 2021-12-31 09:38 | Emergency (ER) | payer BC ==
[2021-12-31 10:08] LABS: #Eosinphils 0.1 thou/uL (0.0-0.7); #Lymphocytes 0.9 thou/uL (1.20-3.40); #Monocytes 0.4 thou/uL (0.11-0.59); #Neutrophils 4.2 thou/uL (1.40-6.50); %Basophils 0.4 % (0.0-1.0); %Eosinophils 2.6 % (0.0-10.0); %Lymphocytes 15.2 % (21.0-51.0); %Neutrophils 74.8 % (42.0-75.0); Mean Corpuscular HGB CONC 33.4 g/dL (32.0-36.0); Mean Corpuscular Hemoglobin 29.9 pg (27.0-31.0); Mean Corpuscular Volume 89.4 fL (78.0-98.0); Mean Platelet Volume 6.7 fL (7.4-10.4); Platelet Count 159 thou/uL (130-400); RBC Distribution Width 12.6 % (11.5-14.5); Red Blood Cell (RBC) Count 4.35 mill/uL (4.70-6.10); White Blood Cell (WBC) Count 5.6 thou/uL (4.8-10.8)
[2021-12-31 11:31] LABS: ALT (SGPT) 31 U/L (8-55); AST (SGOT) 26 U/L (5-34); Albumin 4.2 g/dL (3.5-5.0); Alkaline Phosphatase 70 U/L (40-110); Anion Gap 14 mmol/L (10-20); BUN (Urea Nitrogen) 12 mg/dL (8.9-20.6); Bilirubin, Total 0.9 mg/dL (0.2-1.2); Calc. Creatinine Clearance 0 mL/min (70-130); Calcium 9.2 mg/dL (7.8-10.44); Carbon Dioxide 23 mmol/L (22-29); Chloride 102 mmol/L (98-107); Estimated GFR 84; Globulin 4.2 g/dL (2.4-3.5); Glucose 92 mg/dL (70-105); Lipase 53 U/L (8-78); Potassium 4.1 mmol/L (3.5-5.1); Protein, Total 8.4 g/dL (6.0-8.3); Sodium 135 mmol/L (136-145)
[2021-12-31] MEDS ORDERED: diphenhydrAMINE 50 MG/ML VIAL ONE (11:34)
[2021-12-31] MEDS ORDERED: Metoclopramide 10 MG/10 ML UDCUP ONE (11:34)
[2021-12-31] MEDS ORDERED: Ketorolac Tromethamine 30 MG/ML VIAL ONE (11:34)
[2021-12-31] MEDS ORDERED: Metoclopramide HCl 10 MG/2 ML VIAL ONE (11:35)
[2021-12-31] MEDS ORDERED: Iopamidol-370 76% 500 ML 1 ML ONE (14:35)
== END 2021-12-31 13:46 | disposition home or self-care (01) ==
LOC: ERS 09:38
DX: R51.9 Headache, unspecified (principal); Z86.718 Personal history of other venous thrombosis and embolism; Z79.01 Long term (current) use of anticoagulants; Z79.899 Other long term (current) drug therapy
CPT/HCPCS: 36415; 70496; 71045; 80053; 83690; 84484; 85025; 93005; 96365; 96375; J1200; J1885; J2765; Q9967

== ENCOUNTER 2022-04-24 12:12 | Inpatient (IN) | payer BC ==
[2022-04-24 12:42] VITALS: BMI 36.1
[2022-04-24] MEDS ORDERED: Ondansetron PF 4 MG/2 ML Vial IVP PRN (13:00)
[2022-04-24] MEDS ORDERED: Bisacodyl 5 MG TAB PO PRN (13:00)
[2022-04-24] MEDS ORDERED: Vancomycin 1 GM in Premix Bag 1 BAG IVPB SCH (13:00)
[2022-04-24] MEDS ORDERED: FLU VACC QS2022-23(6MOS UP)/PF 60 MCG/0.5 ML SYRINGE IM ONE (13:15)
[2022-04-24] MEDS: Acetaminophen 325 MG TAB PO PRN (14:07)
[2022-04-24] MEDS ORDERED: Magnevist 469MG/ML 20 ML VIAL ONE (16:05)
[2022-04-24] MEDS: Vancomycin 1.5 GRAM/300 ML BAG 1.5 GM in Premix Bag 1 BAG IVPB SCH (16:55)
[2022-04-24] MEDS ORDERED: Enoxaparin Sodium 120 MG/0.8 ML SYRINGE SC SCH (21:00)
[2022-04-24] MEDS: Cefepime 2 GM in Sodium Chloride 0.9% 100 ML IVPB SCH (22:07)
[2022-04-24] MEDS: Enoxaparin Sodium 120 MG/0.8 ML SYRINGE SC SCH (22:10)
[2022-04-24] MEDS ORDERED: traMADol HCl 50 MG TAB PO SCH (23:15)
[2022-04-25 01:12] LABS: Vancomycin, Trough 15.3 ug/mL
[2022-04-25] MEDS: Vancomycin 1.5 GRAM/300 ML BAG 1.5 GM in Premix Bag 1 BAG IVPB SCH ×3 (02:36→18:10)
[2022-04-25 05:51] LABS: #Eosinphils 0.1 thou/uL (0.0-0.7); #Lymphocytes 0.9 thou/uL (1.20-3.40); #Monocytes 0.4 thou/uL (0.11-0.59); #Neutrophils 2.2 thou/uL (1.40-6.50); %Basophils 0.8 % (0.0-1.0); %Eosinophils 2.2 % (0.0-10.0); %Lymphocytes 24.7 % (21.0-51.0); %Monocytes 11.2 % (0.0-10.0); %Neutrophils 61.1 % (42.0-75.0); Hemoglobin 12.5 g/dL (14.0-18.0); Mean Corpuscular HGB CONC 33.1 g/dL (32.0-36.0); Mean Corpuscular Hemoglobin 30.2 pg (27.0-31.0); Mean Corpuscular Volume 91.2 fl (78.0-98.0); Mean Platelet Volume 6.7 fL (7.4-10.4); Platelet Count 145 10x3/uL (130-400); RBC Distribution Width 12.5 % (11.5-14.5); Red Blood Cell (RBC) Count 4.15 mill/uL (4.70-6.10); White Blood Cell (WBC) Count 3.7 10x3/uL (4.8-10.8)
[2022-04-25 06:11] LABS: Anion Gap 10 mmol/L (10-20); BUN (Urea Nitrogen) 11 mg/dL (8.9-20.6); Calc. Creatinine Clearance 169 mL/min (70-130); Calcium 8.5 mg/dL (7.8-10.44); Carbon Dioxide 24 mmol/L (22-29); Chloride 107 mmol/L (98-107); Estimated GFR 107; Glucose 91 mg/dL (70-105); Potassium 4.4 mmol/L (3.5-5.1); Sodium 137 mmol/L (136-145)
[2022-04-25] MEDS: Cefepime 2 GM in Sodium Chloride 0.9% 100 ML IVPB SCH ×2 (09:28→21:26)
[2022-04-25] MEDS: Enoxaparin Sodium 120 MG/0.8 ML SYRINGE SC SCH ×2 (09:29→21:23)
[2022-04-25] MEDS: Acetaminophen 325 MG TAB PO PRN (23:29)
[2022-04-26 01:41] LABS: Vancomycin, Trough 26.6 ug/mL
[2022-04-26 05:19] LABS: #Eosinphils 0.1 thou/uL (0.0-0.7); #Monocytes 0.3 thou/uL (0.11-0.59); #Neutrophils 2.7 thou/uL (1.40-6.50); %Basophils 0.1 % (0.0-1.0); %Eosinophils 2.5 % (0.0-10.0); %Lymphocytes 23.4 % (21.0-51.0); %Monocytes 8.4 % (0.0-10.0); %Neutrophils 65.6 % (42.0-75.0); Hemoglobin 11.4 g/dL (14.0-18.0); Mean Corpuscular HGB CONC 32.1 g/dL (32.0-36.0); Mean Corpuscular Hemoglobin 29.3 pg (27.0-31.0); Mean Corpuscular Volume 91.2 fl (78.0-98.0); Mean Platelet Volume 7.1 fL (7.4-10.4); Platelet Count 142 10x3/uL (130-400); RBC Distribution Width 12.6 % (11.5-14.5); Red Blood Cell (RBC) Count 3.89 mill/uL (4.70-6.10)
[2022-04-26 05:37] LABS: Anion Gap 11 mmol/L (10-20); BUN (Urea Nitrogen) 14 mg/dL (8.9-20.6); Calc. Creatinine Clearance 142 mL/min (70-130); Calcium 8.5 mg/dL (7.8-10.44); Carbon Dioxide 26 mmol/L (22-29); Chloride 107 mmol/L (98-107); Estimated GFR 87; Glucose 111 mg/dL (70-105); Potassium 3.9 mmol/L (3.5-5.1); Sodium 140 mmol/L (136-145)
[2022-04-26] MEDS: Cefepime 2 GM in Sodium Chloride 0.9% 100 ML IVPB SCH ×2 (09:13→21:10)
[2022-04-26] MEDS: Enoxaparin Sodium 120 MG/0.8 ML SYRINGE SC SCH ×2 (09:13→21:11)
[2022-04-26] MEDS: HYDROcodone/Acetaminophen 7.5/325 mg Tablet PO PRN ×2 (10:34→19:57)
[2022-04-26] MEDS: VANCOMYCIN 1.75 GM/500 ML BAG 1.75 GM in Premix Bag 1 BAG IVPB SCH ×2 (11:07→22:25)
[2022-04-27] MEDS: Enoxaparin Sodium 120 MG/0.8 ML SYRINGE SC SCH ×2 (09:12→21:28)
[2022-04-27] MEDS: Cefepime 2 GM in Sodium Chloride 0.9% 100 ML IVPB SCH ×2 (09:12→21:29)
[2022-04-27] MEDS: VANCOMYCIN 1.75 GM/500 ML BAG 1.75 GM in Premix Bag 1 BAG IVPB SCH ×2 (10:03→22:23)
[2022-04-27] MEDS: HYDROcodone/Acetaminophen 7.5/325 mg Tablet PO PRN (18:26)
[2022-04-27 21:31] LABS: Vancomycin, Trough 17.7 ug/mL
[2022-04-28] MEDS: Cefepime 2 GM in Sodium Chloride 0.9% 100 ML IVPB SCH ×2 (08:25→21:53)
[2022-04-28] MEDS: Enoxaparin Sodium 120 MG/0.8 ML SYRINGE SC SCH ×2 (08:26→21:54)
[2022-04-28] MEDS: VANCOMYCIN 1.75 GM/500 ML BAG 1.75 GM in Premix Bag 1 BAG IVPB SCH ×2 (11:39→22:46)
[2022-04-28] MEDS ORDERED: Lidocaine 1% w/Epinephrine 1:100K 20 ML VIAL IJ SCH (14:30)
[2022-04-29 05:54] LABS: #Eosinphils 0.1 thou/uL (0.0-0.7); #Lymphocytes 0.9 thou/uL (1.20-3.40); #Monocytes 0.4 thou/uL (0.11-0.59); #Neutrophils 2.4 thou/uL (1.40-6.50); %Basophils 0.4 % (0.0-1.0); %Eosinophils 3.2 % (0.0-10.0); %Lymphocytes 22.1 % (21.0-51.0); %Monocytes 11.4 % (0.0-10.0); %Neutrophils 62.9 % (42.0-75.0); Hemoglobin 12.2 g/dL (14.0-18.0); Mean Corpuscular HGB CONC 31.5 g/dL (32.0-36.0); Mean Corpuscular Hemoglobin 28.7 pg (27.0-31.0); Mean Corpuscular Volume 90.9 fl (78.0-98.0); Mean Platelet Volume 6.9 fL (7.4-10.4); Platelet Count 151 10x3/uL (130-400); RBC Distribution Width 12.8 % (11.5-14.5); Red Blood Cell (RBC) Count 4.24 mill/uL (4.70-6.10); White Blood Cell (WBC) Count 3.9 10x3/uL (4.8-10.8)
[2022-04-29 06:14] LABS: Anion Gap 12 mmol/L (10-20); BUN (Urea Nitrogen) 14 mg/dL (8.9-20.6); Calc. Creatinine Clearance 166 mL/min (70-130); Calcium 8.6 mg/dL (7.8-10.44); Carbon Dioxide 23 mmol/L (22-29); Chloride 104 mmol/L (98-107); Estimated GFR 104; Glucose 97 mg/dL (70-105); Potassium 4.1 mmol/L (3.5-5.1)
[2022-04-29 06:22] LABS: Sodium 135 mmol/L (136-145)
[2022-04-29] MEDS ORDERED: Lidocaine 1% w/Epinephrine 1:100K 20 ML VIAL IJ PRN (07:16)
[2022-04-29] MEDS: Cefepime 2 GM in Sodium Chloride 0.9% 100 ML IVPB SCH ×3 (08:21→23:39)
[2022-04-29] MEDS: Enoxaparin Sodium 120 MG/0.8 ML SYRINGE SC SCH ×2 (08:22→21:28)
[2022-04-29] MEDS: HYDROcodone/Acetaminophen 7.5/325 mg Tablet PO PRN ×3 (09:20→21:26)
[2022-04-29] MEDS: VANCOMYCIN 1.75 GM/500 ML BAG 1.75 GM in Premix Bag 1 BAG IVPB SCH (10:28)
[2022-04-29] MEDS: Morphine 4 MG/ML VIAL SLOW IVP PRN ×2 (10:45→18:20)
[2022-04-29 21:33] LABS: Vancomycin, Trough 18.1 ug/mL
[2022-04-29] MEDS ORDERED: Melatonin 3 MG TAB PO PRN (21:42)
[2022-04-30] MEDS: VANCOMYCIN 1.75 GM/500 ML BAG 1.75 GM in Premix Bag 1 BAG IVPB SCH (00:09)
[2022-04-30] MEDS: Enoxaparin Sodium 120 MG/0.8 ML SYRINGE SC SCH (09:04)
[2022-04-30] MEDS: Cefepime 2 GM in Sodium Chloride 0.9% 100 ML IVPB SCH (09:04)
[2022-04-30] MEDS ORDERED: Piperacillin/Tazobactam 3.375 GM in Sodium Chloride 0.9% 100 ML IVPB SCH ×2 (10:15→14:00)
[2022-04-30] MEDS ORDERED: VANCOMYCIN 1.75 GM/500 ML BAG 1.75 GM in Premix Bag 1 BAG IVPB SCH (12:00)
[2022-04-30 20:06] VITALS: BP 146/77; TEMP 97.9
== END 2022-04-30 20:15 | disposition home or self-care (01) | DRG 580 ==
LOC: MSONC 12:22 → OBSVTOIN 12:22 → INTOOBSV 12:22
PROVIDERS: ADMIT Internal Medicine; ATTEND Internal Medicine
PROC: 0KBT0ZZ Excision of Left Lower Leg Muscle, Open Approach (ICD-10-PCS; principal; 2022-04-29)
DX: L03.116 Cellulitis of left lower limb (principal); D68.51 Activated protein C resistance; E87.1 Hypo-osmolality and hyponatremia; Z20.822 Contact with and (suspected) exposure to COVID-19; S81.852A Open bite, left lower leg, initial encounter; W57.XXXA Bitten or stung by nonvenomous insect and other nonvenomous arthropods, initial encounter; D64.9 Anemia, unspecified; E66.9 Obesity, unspecified; Z79.899 Other long term (current) drug therapy; Z86.718 Personal history of other venous thrombosis and embolism; Z79.01 Long term (current) use of anticoagulants; Z86.711 Personal history of pulmonary embolism; Z68.36 Body mass index [BMI] 36.0-36.9, adult
CPT/HCPCS: 36415; 80048; 80202; 85025; 97139; A9579; J0692; J1650; J2270; J2543; J3370; J3490

== ENCOUNTER 2022-07-06 22:58 | Observation (INO) | payer BC ==
[2022-07-06 23:28] LABS: #Eosinphils 0.1 thou/uL (0.0-0.7); #Lymphocytes 0.9 thou/uL (1.20-3.40); #Monocytes 0.5 thou/uL (0.11-0.59); #Neutrophils 4.4 thou/uL (1.40-6.50); %Basophils 0.1 % (0.0-1.0); %Eosinophils 1.9 % (0.0-10.0); %Lymphocytes 15.3 % (21.0-51.0); %Monocytes 8.9 % (0.0-10.0); %Neutrophils 73.8 % (42.0-75.0); Hemoglobin 12.7 g/dL (14.0-18.0); Mean Corpuscular HGB CONC 33.8 g/dL (32.0-36.0); Mean Corpuscular Hemoglobin 30.1 pg (27.0-31.0); Mean Corpuscular Volume 88.9 fl (78.0-98.0); Mean Platelet Volume 6.3 fL (7.4-10.4); Platelet Count 109 10x3/uL (130-400); RBC Distribution Width 12.5 % (11.5-14.5); Red Blood Cell (RBC) Count 4.24 mill/uL (4.70-6.10); White Blood Cell (WBC) Count 5.9 10x3/uL (4.8-10.8)
[2022-07-06 23:46] LABS: ALT (SGPT) 34 U/L (8-55); AST (SGOT) 33 U/L (5-34); Alkaline Phosphatase 91 U/L (40-110); Anion Gap 13 mmol/L (10-20); BUN (Urea Nitrogen) 15 mg/dL (8.9-20.6); Bilirubin, Total 0.5 mg/dL (0.2-1.2); Calc. Creatinine Clearance 0 mL/min (70-130); Calcium 9.2 mg/dL (7.8-10.44); Carbon Dioxide 27 mmol/L (22-29); Chloride 100 mmol/L (98-107); Estimated GFR 78; Glucose 112 mg/dL (70-105); Potassium 4.3 mmol/L (3.5-5.1); Sodium 136 mmol/L (136-145)
[2022-07-07] MEDS ORDERED: Ondansetron PF 4 MG/2 ML Vial ONE (00:02)
[2022-07-07] MEDS ORDERED: Morphine 4 MG/ML VIAL ONE (00:02)
[2022-07-07 00:11] LABS: INR-International Normal Ratio 1.1; Prothrombin Time 14.1 sec (12.0-14.7)
[2022-07-07 00:13] LABS: PTT 114.2 sec (22.9-36.1)
[2022-07-07] MEDS ORDERED: Senokot S 8.6-50 MG TAB PO PRN (02:51)
[2022-07-07] MEDS ORDERED: Ondansetron ODT 4 MG TAB PO PRN (02:51)
[2022-07-07] MEDS ORDERED: Acetaminophen 325 MG TAB PO PRN (02:51)
[2022-07-07 04:47] LABS: Troponin I Less than 0.010 ng/mL (< 0.028)
[2022-07-07 06:02] LABS: Troponin I Less than 0.010 ng/mL (< 0.028)
[2022-07-07] MEDS ORDERED: Iopamidol-370 76% 500 ML 1 ML ONE (08:49)
[2022-07-07] MEDS ORDERED: traMADol HCl 50 MG TAB PO SCH (08:53)
[2022-07-07] MEDS ORDERED: Famotidine 20 MG TAB ONE (09:12)
[2022-07-07] MEDS ORDERED: traMADol HCl 50 MG TAB ONE (09:12)
[2022-07-07] MEDS: Enoxaparin 120 MG/0.8 ML SYRINGE SC SCH ×2 (09:15→20:01)
[2022-07-07] MEDS: Famotidine 20 MG TAB PO SCH ×2 (09:15→20:01)
[2022-07-07 11:39] VITALS: BMI 36.0
[2022-07-07] MEDS ORDERED: traMADol HCl 50 MG TAB PO PRN (12:13)
[2022-07-07] MEDS ORDERED: Meclizine HCl 12.5 MG TAB PO SCH (21:30)
[2022-07-08 05:53] LABS: #Eosinphils 0.2 thou/uL (0.0-0.7); #Lymphocytes 0.9 thou/uL (1.20-3.40); #Monocytes 0.5 thou/uL (0.11-0.59); #Neutrophils 2.8 thou/uL (1.40-6.50); %Basophils 0.2 % (0.0-1.0); %Eosinophils 3.7 % (0.0-10.0); %Lymphocytes 20.9 % (21.0-51.0); %Monocytes 10.5 % (0.0-10.0); %Neutrophils 64.7 % (42.0-75.0); Hemoglobin 11.4 g/dL (14.0-18.0); Mean Corpuscular HGB CONC 33.3 g/dL (32.0-36.0); Mean Corpuscular Hemoglobin 29.9 pg (27.0-31.0); Mean Corpuscular Volume 89.6 fl (78.0-98.0); Mean Platelet Volume 7.1 fL (7.4-10.4); Platelet Count 107 10x3/uL (130-400); RBC Distribution Width 12.4 % (11.5-14.5); Red Blood Cell (RBC) Count 3.82 mill/uL (4.70-6.10); White Blood Cell (WBC) Count 4.3 10x3/uL (4.8-10.8)
[2022-07-08 06:30] LABS: Anion Gap 11 mmol/L (10-20); BUN (Urea Nitrogen) 12 mg/dL (8.9-20.6); Calc. Creatinine Clearance 155 mL/min (70-130); Carbon Dioxide 27 mmol/L (22-29); Chloride 100 mmol/L (98-107); Estimated GFR 97; Glucose 90 mg/dL (70-105); Potassium 4.3 mmol/L (3.5-5.1); Sodium 134 mmol/L (136-145)
[2022-07-08] MEDS: Enoxaparin 120 MG/0.8 ML SYRINGE SC SCH (07:58)
[2022-07-08] MEDS: Famotidine 20 MG TAB PO SCH (07:59)
[2022-07-08 12:05] VITALS: BP 111/57; TEMP 98.5
== END 2022-07-08 14:15 | disposition home or self-care (01) ==
LOC: ERS 22:58 → ERHOLD 07-07 02:08 → 2SW 07-07 11:30
PROVIDERS: ADMIT Family Medicine; ATTEND Family Medicine
DX: R07.89 Other chest pain (principal); D68.51 Activated protein C resistance; I87.2 Venous insufficiency (chronic) (peripheral); L97.929 Non-pressure chronic ulcer of unspecified part of left lower leg with unspecified severity; T82.898A Other specified complication of vascular prosthetic devices, implants and grafts, initial encounter; I08.8 Other rheumatic multiple valve diseases; Z86.711 Personal history of pulmonary embolism; Z86.718 Personal history of other venous thrombosis and embolism; Z79.01 Long term (current) use of anticoagulants; Y71.3 Surgical instruments, materials and cardiovascular devices (including sutures) associated with adverse incidents
CPT/HCPCS: 36415; 70450; 71045; 71275; 78451; 80048; 80053; 84484; 85025; 85379; 85610; 85730; 93005; 93306; 96372; 96374; 96375; 97139; A9540; G0378; J1650; J2270; J2405; Q9967

== ENCOUNTER 2023-01-05 23:40 | Inpatient (IN) | payer SELFPAY ==
[2023-01-06 01:22] LABS: #Eosinphils 0.1 thou/uL (0.0-0.7); #Monocytes 0.5 thou/uL (0.11-0.59); #Neutrophils 2.8 thou/uL (1.40-6.50); %Basophils 0.2 % (0.0-1.0); %Eosinophils 2.3 % (0.0-10.0); %Lymphocytes 19.9 % (21.0-51.0); %Monocytes 11.9 % (0.0-10.0); %Neutrophils 63.4 % (42.0-75.0); Hematocrit 34.5 % (42.0-52.0); Hemoglobin 11.2 g/dL (14.0-18.0); Mean Corpuscular HGB CONC 32.5 g/dL (32.0-36.0); Mean Corpuscular Volume 86.3 fl (78.0-98.0); Mean Platelet Volume 9.2 fL (7.4-10.4); Platelet Count 143 10x3/uL (130-400); RBC Distribution Width 14.3 % (11.5-14.5); White Blood Cell (WBC) Count 4.4 10x3/uL (4.8-10.8)
[2023-01-06] MEDS ORDERED: Cefepime 2 GM VIAL ONE (01:28)
[2023-01-06 01:38] LABS: INR-International Normal Ratio 1.1; Prothrombin Time 14.7 sec (12.0-14.7)
[2023-01-06 01:40] LABS: PTT 101.7 sec (22.9-36.1)
[2023-01-06 02:29] LABS: ALT (SGPT) 18 U/L (8-55); AST (SGOT) 22 U/L (5-34); Albumin 3.7 g/dL (3.5-5.0); Alkaline Phosphatase 69 U/L (40-110); Anion Gap 12 mmol/L (10-20); BUN (Urea Nitrogen) 11 mg/dL (8.9-20.6); Bilirubin, Total 0.4 mg/dL (0.2-1.2); Calc. Creatinine Clearance 0 mL/min (70-130); Carbon Dioxide 24 mmol/L (22-29); Chloride 105 mmol/L (98-107); Estimated GFR 86; Globulin 4.1 g/dL (2.4-3.5); Glucose 112 mg/dL (70-105); Potassium 4.5 mmol/L (3.5-5.1); Protein, Total 7.8 g/dL (6.0-8.3); Sodium 136 mmol/L (136-145)
[2023-01-06] MEDS ORDERED: Vancomycin 1 GM/200 ML (FROZEN) BAG ONE ×2 (02:45→04:03)
[2023-01-06] MEDS ORDERED: Ondansetron ODT 4 MG TAB PO PRN (02:55)
[2023-01-06] MEDS ORDERED: Acetaminophen 325 MG TAB PO PRN (02:55)
[2023-01-06] MEDS ORDERED: Calcium Carbonate 500 MG ChewTAB PO PRN (02:55)
[2023-01-06] MEDS ORDERED: Senokot S 8.6-50 MG TAB PO PRN (02:55)
[2023-01-06 04:52] VITALS: BMI 33.2
[2023-01-06] MEDS: HYDROcodone/Acetaminophen 5/325 mg Tablet PO PRN ×3 (05:05→17:16)
[2023-01-06] MEDS ORDERED: Enoxaparin 120 MG/0.8 ML SYRINGE SC SCH ×3 (09:00→21:00)
[2023-01-06] MEDS: Famotidine 20 MG TAB PO SCH ×2 (09:25→20:44)
[2023-01-06] MEDS: Folic Acid 1 MG TAB PO SCH (09:25)
[2023-01-06] MEDS: Cyanocobalamin (Vitamin B-12) 1,000 MCG TAB PO SCH (09:25)
[2023-01-06] MEDS: metroNIDAZOLE 500 MG TAB PO SCH ×2 (16:19→20:44)
[2023-01-06] MEDS: cefTRIAXone\\ROCEPHIN 2 GM in Sodium Chloride 0.9% 100 ML IVPB SCH (17:16)
[2023-01-06] MEDS: Enoxaparin 120 MG/0.8 ML SYRINGE SC SCH (20:44)
[2023-01-07] MEDS: HYDROcodone/Acetaminophen 5/325 mg Tablet PO PRN ×2 (06:54→20:15)
[2023-01-07] MEDS: Cyanocobalamin (Vitamin B-12) 1,000 MCG TAB PO SCH (08:30)
[2023-01-07] MEDS: Enoxaparin 120 MG/0.8 ML SYRINGE SC SCH ×2 (08:30→20:29)
[2023-01-07] MEDS: Famotidine 20 MG TAB PO SCH ×2 (08:30→20:15)
[2023-01-07] MEDS: metroNIDAZOLE 500 MG TAB PO SCH ×3 (08:30→20:15)
[2023-01-07] MEDS: Folic Acid 1 MG TAB PO SCH (08:30)
[2023-01-07] MEDS: cefTRIAXone\\ROCEPHIN 2 GM in Sodium Chloride 0.9% 100 ML IVPB SCH (14:21)
[2023-01-08] MEDS: Famotidine 20 MG TAB PO SCH ×2 (08:47→20:24)
[2023-01-08] MEDS: metroNIDAZOLE 500 MG TAB PO SCH ×3 (08:47→20:24)
[2023-01-08] MEDS: Enoxaparin 120 MG/0.8 ML SYRINGE SC SCH ×2 (08:47→20:25)
[2023-01-08] MEDS: Cyanocobalamin (Vitamin B-12) 1,000 MCG TAB PO SCH (08:47)
[2023-01-08] MEDS: Folic Acid 1 MG TAB PO SCH (08:48)
[2023-01-08] MEDS: cefTRIAXone\\ROCEPHIN 2 GM in Sodium Chloride 0.9% 100 ML IVPB SCH (13:55)
[2023-01-08] MEDS: HYDROcodone/Acetaminophen 5/325 mg Tablet PO PRN ×3 (13:56→22:25)
[2023-01-08] MEDS ORDERED: Morphine 4 MG/ML VIAL SLOW IVP SCH (15:00)
[2023-01-09 07:54] VITALS: BP 118/81; TEMP 97.8
[2023-01-09] MEDS: metroNIDAZOLE 500 MG TAB PO SCH (09:06)
[2023-01-09] MEDS: HYDROcodone/Acetaminophen 5/325 mg Tablet PO PRN (09:06)
[2023-01-09] MEDS: Famotidine 20 MG TAB PO SCH (09:06)
[2023-01-09] MEDS: Folic Acid 1 MG TAB PO SCH (09:06)
[2023-01-09] MEDS: Cyanocobalamin (Vitamin B-12) 1,000 MCG TAB PO SCH (09:06)
[2023-01-09] MEDS: Enoxaparin 120 MG/0.8 ML SYRINGE SC SCH (09:07)
== END 2023-01-09 14:36 | disposition home or self-care (01) | DRG 300 ==
LOC: ERS 23:40 → T4-B 01-06 03:04
PROVIDERS: ADMIT Student in an Organized Health Care Education/Training Program; ATTEND Family Medicine
DX: I82.413 Acute embolism and thrombosis of femoral vein, bilateral (principal); D68.51 Activated protein C resistance; L97.929 Non-pressure chronic ulcer of unspecified part of left lower leg with unspecified severity; L03.116 Cellulitis of left lower limb; I87.8 Other specified disorders of veins; T14.8XXA Other injury of unspecified body region, initial encounter; Y83.8 Other surgical procedures as the cause of abnormal reaction of the patient, or of later complication, without mention of misadventure at the time of the procedure; Z79.899 Other long term (current) drug therapy; Z86.711 Personal history of pulmonary embolism
CPT/HCPCS: 36415; 80053; 83880; 85025; 85610; 85730; 87040; 87070; 87077; 87186; 87205; 93970; 96365; 96367; 97139; J0692; J0696; J1650; J2270; J3370-JW; J3490

== ENCOUNTER 2023-01-10 04:42 | Emergency (ER) | payer SELFPAY ==
[2023-01-10 05:10] LABS: #Monocytes 0.4 thou/uL (0.11-0.59); %Basophils 0.3 % (0.0-1.0); %Eosinophils 0.3 % (0.0-10.0); %Lymphocytes 8.8 % (21.0-51.0); %Monocytes 5.1 % (0.0-10.0); %Neutrophils 83.3 % (42.0-75.0); Hemoglobin 12.1 g/dL (14.0-18.0); Mean Corpuscular HGB CONC 32.7 g/dL (32.0-36.0); Mean Corpuscular Hemoglobin 27.9 pg (27.0-31.0); Mean Corpuscular Volume 85.5 fl (78.0-98.0); Mean Platelet Volume 8.9 fL (7.4-10.4); Platelet Count 130 10x3/uL (130-400); RBC Distribution Width 14.3 % (11.5-14.5); Red Blood Cell (RBC) Count 4.33 mill/uL (4.70-6.10); White Blood Cell (WBC) Count 7.2 10x3/uL (4.8-10.8)
[2023-01-10 05:36] LABS: ALT (SGPT) 36 U/L (8-55); AST (SGOT) 50 U/L (5-34); Albumin 4.1 g/dL (3.5-5.0); Alkaline Phosphatase 75 U/L (40-110); Anion Gap 20 mmol/L (10-20); BUN (Urea Nitrogen) 10 mg/dL (8.9-20.6); Bilirubin, Total 0.4 mg/dL (0.2-1.2); Calc. Creatinine Clearance 0 mL/min (70-130); Calcium 9.4 mg/dL (7.8-10.44); Carbon Dioxide 19 mmol/L (22-29); Chloride 101 mmol/L (98-107); Estimated GFR 82; Globulin 4.7 g/dL (2.4-3.5); Glucose 135 mg/dL (70-105); Potassium 3.7 mmol/L (3.5-5.1); Protein, Total 8.8 g/dL (6.0-8.3); Sodium 136 mmol/L (136-145)
[2023-01-10 05:40] LABS: Troponin I Less than 0.010 ng/mL (< 0.028)
== END 2023-01-10 06:40 | disposition home or self-care (01) ==
LOC: ERS 04:42
DX: R07.9 Chest pain, unspecified (principal)
CPT/HCPCS: 36415; 71045; 80053; 83880; 84484; 85025; 93005

== ENCOUNTER 2023-01-26 10:29 | Inpatient (IN) | payer BC, SELFPAY ==
[2023-01-26 11:11] LABS: #Eosinphils 0.1 thou/uL (0.0-0.7); #Monocytes 0.6 thou/uL (0.11-0.59); #Neutrophils 3.4 thou/uL (1.40-6.50); %Basophils 0.2 % (0.0-1.0); %Eosinophils 1.5 % (0.0-10.0); %Monocytes 10.8 % (0.0-10.0); Hematocrit 33.6 % (42.0-52.0); Hemoglobin 10.7 g/dL (14.0-18.0); Mean Corpuscular HGB CONC 31.8 g/dL (32.0-36.0); Mean Corpuscular Hemoglobin 27.8 pg (27.0-31.0); Mean Corpuscular Volume 87.3 fl (78.0-98.0); Mean Platelet Volume 9.1 fL (7.4-10.4); Platelet Count 146 10x3/uL (130-400); RBC Distribution Width 14.8 % (11.5-14.5); Red Blood Cell (RBC) Count 3.85 mill/uL (4.70-6.10); White Blood Cell (WBC) Count 5.2 10x3/uL (4.8-10.8)
[2023-01-26 11:47] LABS: Calcium 8.9 mg/dL (7.8-10.44); Chloride 104 mmol/L (98-107); Potassium 3.8 mmol/L (3.5-5.1); Sodium 139 mmol/L (136-145)
[2023-01-26 12:11] LABS: Globulin 4.6 g/dL (2.4-3.5); Glucose 97 mg/dL (70-105); Protein, Total 8.6 g/dL (6.0-8.3)
[2023-01-26 12:12] LABS: Anion Gap 12 mmol/L (10-20); Carbon Dioxide 27 mmol/L (22-29)
[2023-01-26 12:13] LABS: Bilirubin, Total 0.5 mg/dL (0.2-1.2)
[2023-01-26 12:14] LABS: Alkaline Phosphatase 68 U/L (40-110); Calc. Creatinine Clearance 0 mL/min (70-130); Estimated GFR 64
[2023-01-26 12:15] LABS: BUN (Urea Nitrogen) 17 mg/dL (8.9-20.6)
[2023-01-26 12:16] LABS: AST (SGOT) 25 U/L (5-34)
[2023-01-26 12:17] LABS: ALT (SGPT) 19 U/L (8-55)
[2023-01-26] MEDS ORDERED: Ondansetron PF 4 MG/2 ML Vial ONE (12:57)
[2023-01-26] MEDS ORDERED: Morphine 4 MG/ML VIAL ONE (12:57)
[2023-01-26] MEDS ORDERED: cefTRIAXone (ROCEPHIN) 1 GM VIAL ONE (12:57)
[2023-01-26] MEDS ORDERED: Vancomycin 1 GM/200 ML (FROZEN) BAG ONE (13:32)
[2023-01-26] MEDS ORDERED: HYDROmorphone 0.5 MG/0.5 ML SYRINGE ONE (13:42)
[2023-01-26 13:48] LABS: Bacteria/HPF None Seen HPF (None Seen); Bilirubin Negative (Negative); Blood, Urine Negative (Negative); CAUTI Indications for Culture Dysuria,urgency,freq; Clarity Clear (Clear); Glucose, Urine (Dipstick) Normal (Negative); Ketone, Urine Negative (Negative); Leukocyte Negative Leu/uL (Negative); Nitrite Negative (Negative); Protein, Urine (Dipstick) 30 mg/dL (Neg-Trace); RBC/HPF 0-3 HPF (0-3); Specific Gravity, Urine 1.012 (1.002-1.036); Squamous Epithelial None Seen HPF (0-3); Urobilinogen Normal mg/dL (Less than 2); WBC/HPF 0-3 HPF (0-3)
[2023-01-26 13:50] LABS: Urine Culture Reflex No No
[2023-01-26] MEDS ORDERED: Ondansetron ODT 4 MG TAB PO PRN (15:47)
[2023-01-26] MEDS ORDERED: Acetaminophen 325 MG TAB PO PRN (15:47)
[2023-01-26] MEDS ORDERED: HYDROcodone/Acetaminophen 5/325 mg Tablet PO PRN (16:01)
[2023-01-26] MEDS ORDERED: Morphine 4 MG/ML VIAL SLOW IVP PRN (17:06)
[2023-01-26 18:15] VITALS: BMI 39.5
[2023-01-26] MEDS: Enoxaparin 120 MG/0.8 ML SYRINGE SC SCH (20:16)
[2023-01-27 06:26] LABS: #Eosinphils 0.1 thou/uL (0.0-0.7); #Monocytes 0.5 thou/uL (0.11-0.59); #Neutrophils 4.5 thou/uL (1.40-6.50); %Basophils 0.2 % (0.0-1.0); %Eosinophils 2.1 % (0.0-10.0); %Lymphocytes 7.5 % (21.0-51.0); %Monocytes 8.7 % (0.0-10.0); %Neutrophils 80.1 % (42.0-75.0); Hematocrit 33.8 % (42.0-52.0); Hemoglobin 10.6 g/dL (14.0-18.0); Mean Corpuscular HGB CONC 31.4 g/dL (32.0-36.0); Mean Corpuscular Hemoglobin 27.9 pg (27.0-31.0); Mean Corpuscular Volume 88.9 fl (78.0-98.0); Mean Platelet Volume 9.5 fL (7.4-10.4); Platelet Count 141 10x3/uL (130-400); RBC Distribution Width 14.9 % (11.5-14.5); White Blood Cell (WBC) Count 5.6 10x3/uL (4.8-10.8)
[2023-01-27 06:29] LABS: Anion Gap 9 mmol/L (10-20); BUN (Urea Nitrogen) 10 mg/dL (8.9-20.6); Calc. Creatinine Clearance 144 mL/min (70-130); Calcium 8.4 mg/dL (7.8-10.44); Carbon Dioxide 26 mmol/L (22-29); Chloride 105 mmol/L (98-107); Estimated GFR 79; Glucose 98 mg/dL (70-105); Potassium 3.9 mmol/L (3.5-5.1); Sodium 136 mmol/L (136-145)
[2023-01-27] MEDS: HYDROcodone/Acetaminophen 5/325 mg Tablet PO PRN ×3 (07:19→21:51)
[2023-01-27] MEDS ORDERED: diphenhydrAMINE 50 MG/ML VIAL IVP SCH (09:45)
[2023-01-27] MEDS ORDERED: Furosemide 40 MG/4 ML VIAL SLOW IVP SCH (09:45)
[2023-01-27] MEDS: Enoxaparin 120 MG/0.8 ML SYRINGE SC SCH ×2 (09:52→21:14)
[2023-01-27] MEDS: cefTRIAXone\\ROCEPHIN 2 GM in Sodium Chloride 0.9% 100 ML IVPB SCH (13:14)
[2023-01-27] MEDS: Furosemide 40 MG/4 ML VIAL SLOW IVP SCH (13:15)
[2023-01-28] MEDS: Furosemide 40 MG/4 ML VIAL SLOW IVP SCH ×2 (06:13→13:46)
[2023-01-28 06:59] LABS: #Eosinphils 0.2 thou/uL (0.0-0.7); #Monocytes 0.4 thou/uL (0.11-0.59); #Neutrophils 2.3 thou/uL (1.40-6.50); %Basophils 0.3 % (0.0-1.0); %Eosinophils 4.2 % (0.0-10.0); %Lymphocytes 20.1 % (21.0-51.0); %Monocytes 10.3 % (0.0-10.0); %Neutrophils 63.2 % (42.0-75.0); Hematocrit 33.5 % (42.0-52.0); Hemoglobin 10.5 g/dL (14.0-18.0); Mean Corpuscular HGB CONC 31.3 g/dL (32.0-36.0); Mean Corpuscular Hemoglobin 27.8 pg (27.0-31.0); Mean Corpuscular Volume 88.6 fl (78.0-98.0); Mean Platelet Volume 9.4 fL (7.4-10.4); Platelet Count 153 10x3/uL (130-400); RBC Distribution Width 14.7 % (11.5-14.5); Red Blood Cell (RBC) Count 3.78 mill/uL (4.70-6.10); White Blood Cell (WBC) Count 3.6 10x3/uL (4.8-10.8)
[2023-01-28 07:29] LABS: Anion Gap 12 mmol/L (10-20); BUN (Urea Nitrogen) 10 mg/dL (8.9-20.6); Calc. Creatinine Clearance 174 mL/min (70-130); Calcium 8.8 mg/dL (7.8-10.44); Carbon Dioxide 25 mmol/L (22-29); Chloride 102 mmol/L (98-107); Estimated GFR 100; Glucose 79 mg/dL (70-105); Magnesium 1.8 mg/dL (1.6-2.6); Potassium 3.9 mmol/L (3.5-5.1); Sodium 135 mmol/L (136-145)
[2023-01-28] MEDS: Enoxaparin 120 MG/0.8 ML SYRINGE SC SCH ×2 (09:12→21:22)
[2023-01-28] MEDS: HYDROcodone/Acetaminophen 5/325 mg Tablet PO PRN (09:12)
[2023-01-28] MEDS: cefTRIAXone\\ROCEPHIN 2 GM in Sodium Chloride 0.9% 100 ML IVPB SCH (13:45)
[2023-01-29] MEDS: Furosemide 40 MG/4 ML VIAL SLOW IVP SCH ×2 (06:08→13:10)
[2023-01-29] MEDS: Enoxaparin 120 MG/0.8 ML SYRINGE SC SCH (09:15)
[2023-01-29] MEDS: cefTRIAXone\\ROCEPHIN 2 GM in Sodium Chloride 0.9% 100 ML IVPB SCH (13:10)
[2023-01-29 14:27] VITALS: BP 127/84; TEMP 98
== END 2023-01-29 15:02 | disposition home or self-care (01) | DRG 300 ==
LOC: ERS 10:29 → T4-A 15:22
PROVIDERS: ADMIT Internal Medicine; ATTEND Family Medicine
DX: I87.2 Venous insufficiency (chronic) (peripheral) (principal); D68.51 Activated protein C resistance; L03.116 Cellulitis of left lower limb; N17.9 Acute kidney failure, unspecified; I82.503 Chronic embolism and thrombosis of unspecified deep veins of lower extremity, bilateral; Z79.899 Other long term (current) drug therapy; Z98.890 Other specified postprocedural states; Z79.01 Long term (current) use of anticoagulants
CPT/HCPCS: 36415; 80048; 80053; 81001; 83605; 83735; 85025; 86140; 87040; 87086; 96365; 96367; 96375; 97139; J0696; J1170; J1200; J1650; J1940; J2270; J2405; J3370-JW; J3490

== ENCOUNTER 2023-03-09 10:29 | Emergency (ER) | payer BC ==
[~2023-03-09 10:29] MED LIST changes: -Iopamidol-370 76% 500 ML 1 ML ONE; +Iopamidol-370 76% 500 ML MDV (1 ML CHARGE) ONE
[2023-03-09] MEDS ORDERED: Furosemide 100 MG/10 ML VIAL ONE (13:12)
[2023-03-09] MEDS ORDERED: HYDROcodone/Acetaminophen 10/325 mg Tablet ONE (13:27)
[2023-03-09 13:58] LABS: #Monocytes 0.7 thou/uL (0.11-0.59); #Neutrophils 2.4 thou/uL (1.40-6.50); %Basophils 0.2 % (0.0-1.0); %Eosinophils 0.7 % (0.0-10.0); %Lymphocytes 25.5 % (21.0-51.0); %Neutrophils 56.2 % (42.0-75.0); Hematocrit 28.2 % (42.0-52.0); Hemoglobin 9.5 g/dL (14.0-18.0); Mean Corpuscular HGB CONC 33.7 g/dL (32.0-36.0); Mean Corpuscular Hemoglobin 29.3 pg (27.0-31.0); Mean Platelet Volume 9.6 fL (7.4-10.4); Platelet Count 148 10x3/uL (130-400); RBC Distribution Width 14.6 % (11.5-14.5); Red Blood Cell (RBC) Count 3.24 mill/uL (4.70-6.10); White Blood Cell (WBC) Count 4.2 10x3/uL (4.8-10.8)
[2023-03-09 14:17] LABS: INR-International Normal Ratio 1.2; Prothrombin Time 15.8 sec (12.0-14.7)
[2023-03-09 14:25] LABS: ALT (SGPT) 31 U/L (8-55); AST (SGOT) 35 U/L (5-34); Albumin 4.1 g/dL (3.5-5.0); Alkaline Phosphatase 66 U/L (40-110); Anion Gap 15 mmol/L (10-20); BUN (Urea Nitrogen) 25 mg/dL (8.9-20.6); Bilirubin, Total 0.6 mg/dL (0.2-1.2); Calc. Creatinine Clearance 0 mL/min (70-130); Carbon Dioxide 19 mmol/L (22-29); Chloride 98 mmol/L (98-107); Estimated GFR 47; Globulin 4.2 g/dL (2.4-3.5); Glucose 95 mg/dL (70-105); Potassium 3.4 mmol/L (3.5-5.1); Protein, Total 8.3 g/dL (6.0-8.3); Sodium 129 mmol/L (136-145)
[2023-03-09 14:28] LABS: PTT 134.8 sec (22.9-36.1)
[2023-03-09 14:30] LABS: Troponin I Less than 0.010 ng/mL (< 0.028)
[2023-03-09] MEDS ORDERED: Morphine 4 MG/ML VIAL ONE (20:46)
[2023-03-10] MEDS ORDERED: Morphine 4 MG/ML VIAL ONE (00:41)
[2023-03-10] MEDS ORDERED: Ondansetron PF 4 MG/2 ML Vial ONE (00:41)
== END 2023-03-10 03:10 | disposition short-term general hospital (02) ==
LOC: ERS 10:29
DX: S81.802A Unspecified open wound, left lower leg, initial encounter (principal); X58.XXXA Exposure to other specified factors, initial encounter
CPT/HCPCS: 80053; 83605; 84484; 85025; 85610; 85730; 87040; 87070; 87205; 93923; 96372; 96374; 96375; 96376; J1650; J1940; J2270; J2405; Q9967

== ENCOUNTER 2023-05-02 22:39 | Emergency (ER) | payer BC ==
[2023-05-03] MEDS ORDERED: Acetaminophen 500 MG TAB ONE (00:43)
[2023-05-03] MEDS ORDERED: predniSONE 20 MG TAB ONE (00:43)
[2023-05-03 01:11] LABS: SARS-CoV-2 NAA Rapid Test Not Detected (NotDetected)
== END 2023-05-03 04:43 | disposition home or self-care (01) ==
LOC: ERS 22:39
DX: R59.0 Localized enlarged lymph nodes (principal); Z20.822 Contact with and (suspected) exposure to COVID-19
CPT/HCPCS: 87081; 87430; 99283; J1650; J7512